=== PATIENT | female | born 1960 | race Caucasian/White ===

== ENCOUNTER → 2017-04-30 | Outpatient (CLI) | payer MEDICAID ==
--- NOTE | 2017-05-01 09:11 | USB ---
Reason for exam: clinical finding. History: Patient is postmenopausal, has history of breast cancer at age 47, and has history of endometrial cancer at age 26. Family history of breast cancer in paternal grandmother at age 80 and breast cancer in paternal aunt. Malignant US RT VAD breast biopsy of the right breast, June 14, 2013. Benign US LT VAD breast biopsy of the left breast, June 14, 2013. Left Breast Aspiration of the left breast, June 14, 2013. Saline implant in the left breast, 2012. Breast lift of the left breast, 2012. Chemotherapy, 2012. Radiation therapy, 2012. Cancelled Left US Needle Biopsy of the left breast, June 26, 2011. Mastectomy of the right breast, October 09, 2010. Malignant US right guided VAD of the right breast, August 23, 2010. Malignant US right guided VAD of the right breast, August 23, 2010. Malignant US right guided VAD of the right breast, August 23, 2010. Benign right US cyst aspiration of the right breast, March 05, 2010. Malignant US right guided mammotome of the right breast, December 18, 2007. Excisional biopsy of the right breast. Indicated problem(s): pain in both breasts. Physical Findings: Nurse Summary: saline implant left breast with prominent nodularity lower quadrant, right mastectomy, no palpable abnormality noted, prominent axillary nodes in the right breast (nurse ts). US Breast BILAT Right breast ultrasound includes all four quadrants, the retroareolar region and axilla. Finding demonstrates a 1.3 x 0.9 x 0.7cm node appearing inferior at the axilla. Left breast ultrasound includes all four quadrants, the retroareolar region and axilla. Finding demonstrates a 0.5 x 0.4 x 0.4cm oval, hypoechoic lesion at 2 o'clock, stable. These results were verbally communicated with the patient and result sheet given to the patient on 04/30/17. ASSESSMENT: Probably benign, BI-RAD 3 RECOMMENDATION: Ultrasound of both breasts in 6 months. Manage patient on a clinical basis.
== END | disposition home or self-care (01) ==
LOC: RADUSWWP 13:47
PROVIDERS: ATTEND Internal Medicine Hematology & Oncology
DX: N63 Unspecified lump in breast (principal); N64.4 Mastodynia; Z85.3 Personal history of malignant neoplasm of breast

== ENCOUNTER → 2017-04-30 | Outpatient (CLI) | payer MEDICAID ==
[2017-04-30 11:22] LABS: Basophils # (A) 0.1 k/uL (0-0.2); Basophils % (A) 1 %; CH 32.1; CHCM 33.8; Eosinophils # (A) 0.2 k/uL (0-0.7); Eosinophils % (A) 2 %; HCT 39.4 % (34.0-46.0); HDW 2.33; HGB 13.4 gm/dL (11.4-16.0); Luc # (Auto) 0.17; Luc % (Auto) 2; Lymphocytes # (A) 1.7 k/uL (1.0-4.8); Lymphocytes % (A) 20 %; MCH 32.4 pg (25.0-35.0); MCHC 33.9 g/dL (31.0-37.0); MCV 95.6 fL (80.0-100.0); Mean Platelet Volume 6.5; Monocytes # (A) 0.4 k/uL (0-1.0); Monocytes % (A) 5 %; Neutrophils # (A) 6.1 k/uL (1.3-7.7); Neutrophils % (A) 70 %; RBC 4.13 m/uL (3.80-5.40); RDW 13.4 % (11.5-15.5); WBC 8.6 k/uL (3.8-10.6); WBC (Perox) 8.98
[2017-04-30 12:32] LABS: ALT 36 U/L (9-52); AST 27 U/L (14-36); Alkaline Phosphatase 78 U/L (38-126); Anion Gap 10 mmol/L; Blood Urea Nitrogen 15 mg/dL (7-17); Calcium 9.9 mg/dL (8.4-10.2); Carbon Dioxide 29 mmol/L (22-30); Chloride 103 mmol/L (98-107); Glucose 112 mg/dL (74-99); Non-African American GFR(MDRD) >60 (>60 ml/min/1.73 sqM); Potassium 4.3 mmol/L (3.5-5.1); Sodium 142 mmol/L (137-145); Total Bilirubin 1.3 mg/dL (0.2-1.3); Total Protein 7.1 g/dL (6.3-8.2)
[2017-04-30 13:20] LABS: Vitamin B12 584 pg/mL (239-931)
== END | disposition home or self-care (01) ==
LOC: LABWHC1 10:36
PROVIDERS: ATTEND Internal Medicine Hematology & Oncology
DX: C50.919 Malignant neoplasm of unspecified site of unspecified female breast (principal); G47.00 Insomnia, unspecified
CPT/HCPCS: 36415; 80053; 82306; 82607; 85025

== ENCOUNTER → 2017-06-05 | Outpatient (CLI) | payer MEDICAID ==
--- NOTE | 2017-06-05 11:10 | CT ---
EXAMINATION TYPE: CT soft tissue neck w con DATE OF EXAM: 06/05/2017 COMPARISON: 11/10/2014 and 11/05/2014 HISTORY: 56-year-old female history of Breast Cancer. Observation for metastatic disease. TECHNIQUE: Contiguous axial scanning of the chest neck performed with IV Contrast, patient injected w ith 100 ml mL of Omnipaque 300. Coronal/sagittal reconstructions performed. CT DLP: 497 mGycm Automated exposure control for dose reduction was used. FINDINGS: Moderate mucosal thickening along the floors of the maxillary sinuses and throughout the ethmoid air cells. Rightward nasal septal deviation. Mastoid air cells appear clear. The nasopharynx is clear. There is enlargement of the tubal and palatine tonsils along the tonsillar pillars as well as the juan carlos gual tonsils narrowing the oropharyngeal airway to approximately 13 x 4 mm. Similar finding was prese nt on the prior exam. The epiglottis and prevertebral soft tissues appear satisfactory. The glottic and subglottic structures as well as the tracheal column are clear. The thyroid gland shows a stable tiny 4 mm linear nodule in the right lobe of the thyroid gland. The submandibular glands are mildly atrophic. Parotid glands are satisfactory. Some upper cervical lymph nodes are prominent measuring up to 1 cm short axis, sagittal image 58 but this seems to be similar to the 2014 exam. Multilevel degenerative changes within the cervical spine with grade 1 anterolisthesis at C4-C5. IMPRESSION: 1. TUBAL, PALATINE, AND LINGUAL TONSILLAR HYPERTROPHY SEEN ON 11/10/2014. THERE IS CONTINUED SECON DIMAS NARROWING OF THE OROPHARYNGEAL AIRWAY THOUGH NOT PRONOUNCED ON 11/10/2014. 2. PROMINENT BUT NOT ENLARGED UPPER CERVICAL LYMPH NODES MEASURE UP TO 1 CM, STABLE FROM 2014. 3. MODERATE CHRONIC MAXILLARY AND ETHMOID SINUS DISEASE.
--- NOTE | 2017-06-05 11:31 | CT ---
EXAMINATION TYPE: CT ChestAbdPelvis w con DATE OF EXAM: 06/05/2017 COMPARISON: 06/17/2013 and 11/05/2014 HISTORY: 56 year-old female history of breast cancer. Observation for metastases. TECHNIQUE: Contiguous axial scanning of the chest, abdomen, and pelvis performed with IV Contrast, pa tient injected with 100 ml mL of Omnipaque 300. Delayed images through the kidneys were obtained. Cor onal/sagittal reconstructions performed. CT DLP: 1927 mGycm Automated exposure control for dose reduction was used. FINDINGS: CHEST: The heart is upper limits of normal in size without pericardial effusion. Aorta is normal caliber with conventional arch vessel branching anatomy. Post surgical changes of right-sided mastectomy and axillary node dissection. A left breast prosthesi s is present. No thoracic lymphadenopathy. Subpleural reticulations are present along the anterior right lung underlying the patient's mastectom y suggesting posttherapy changes. Dependent atelectasis in the lungs. Motion artifact limiting assess ment for small pulmonary nodules. No definite suspicious pulmonary nodules allowing for this limitati on. No consolidation or pleural effusion. ABDOMEN: Stable subcentimeter hypodensity anterior mid liver to small for accurate CT characterization, likely cyst. No biliary ductal dilatation. Portal venous system is patent Gallbladder, adrenal glands, kidneys, spleen, and pancreas show no gross abnormal. Tiny fatty umbilical hernia. Some scattered prominent but nonenlarged lymph nodes are present in the abdomen such as measuring 5 m m in the aortocaval region. No dilated small bowel, free fluid, or free air. Normal appendix. Oral contrast has progressed to the distal transverse colon. There is moderate stool with mild sigmoid diverticulosis but no pericolonic inflammatory change. Pelvis: Bladder is urine distended. Uterus surgically absent. Similar asymmetric thickening along the right v aginal cuff with associated phleboliths. Neither ovary is clearly visualized. No abnormal fluid colle ction in the pelvis or pelvic lymphadenopathy seen. Bones: Osteitis pubis and mild degenerative changes at the hips. Additional degenerative changes lower lumba r spine. No osseous destructive process. IMPRESSION: 1. STATUS POST RIGHT MASTECTOMY AND AXILLARY NODE DISSECTION WITH POST TREATMENT CHANGE IN THE UNDERL AMANDA ANTERIOR LUNG. 2. LEFT BREAST PROSTHESIS. 3. NO SPECIFIC FINDINGS TO SUGGEST METASTATIC DISEASE WITHIN THE CHEST, ABDOMEN, OR PELVIS. 4. TINY FATTY UMBILICAL HERNIA AND A FEW SIGMOID DIVERTICULA.
--- NOTE | 2017-06-05 14:53 | NM ---
EXAMINATION TYPE: NM bone scan whole body DATE OF EXAM: 06/05/2017 COMPARISON: 06/17/2013 HISTORY: Pain Delayed whole-body scanning was performed following the injection of 27.0 mCi Tc 99m MDP. Images acq uired 5.25 hours post injection. FINDINGS: Abnormal uptake involving the shoulders, knees and right first MTP likely degenerative. Findings are suggestive of post arthritic changes. Abnormal uptake involving the cervical spine and lower lumbar spine appears fairly stable and most ty pical degenerative disc disease. IMPRESSION: Abnormal uptake appears stable likely post degenerative and post arthritic as discussed above with no diagnostic evidence of metastases.
== END | disposition home or self-care (01) ==
LOC: RADCTMAIN 08:06
PROVIDERS: ATTEND Internal Medicine Hematology & Oncology
DX: C50.919 Malignant neoplasm of unspecified site of unspecified female breast (principal); J39.2 Other diseases of pharynx; J35.1 Hypertrophy of tonsils; K42.9 Umbilical hernia without obstruction or gangrene; K57.30 Diverticulosis of large intestine without perforation or abscess without bleeding; Z90.11 Acquired absence of right breast and nipple
CPT/HCPCS: 70491; 71260; 74177; 78306; A9503; Q9967

== ENCOUNTER → 2018-03-19 | Outpatient (CLI) | payer MEDICAID ==
[2018-03-19 08:22] LABS: Basophils # (A) 0.1 k/uL (0-0.2); Basophils % (A) 1 %; Eosinophils # (A) 0.3 k/uL (0-0.7); Eosinophils % (A) 4 %; HCT 42.3 % (34.0-46.0); HGB 13.9 gm/dL (11.4-16.0); Lymphocytes # (A) 1.5 k/uL (1.0-4.8); Lymphocytes % (A) 17 %; MCH 31.4 pg (25.0-35.0); MCHC 32.9 g/dL (31.0-37.0); MCV 95.6 fL (80.0-100.0); Mean Platelet Volume 6.5; Monocytes # (A) 0.6 k/uL (0-1.0); Monocytes % (A) 6 %; Neutrophils # (A) 6.6 k/uL (1.3-7.7); Neutrophils % (A) 71 %; Platelet Count 329 k/uL (150-450); RBC 4.42 m/uL (3.80-5.40); RDW 14.2 % (11.5-15.5); WBC 9.3 k/uL (3.8-10.6)
[2018-03-19 08:48] LABS: ALT 27 U/L (9-52); AST 23 U/L (14-36); Albumin 4.3 g/dL (3.5-5.0); Alkaline Phosphatase 73 U/L (38-126); Anion Gap 11 mmol/L; Blood Urea Nitrogen 17 mg/dL (7-17); Calcium 9.2 mg/dL (8.4-10.2); Carbon Dioxide 30 mmol/L (22-30); Chloride 100 mmol/L (98-107); Glucose 89 mg/dL (74-99); Potassium 4.4 mmol/L (3.5-5.1); Sodium 141 mmol/L (137-145); Total Bilirubin 0.7 mg/dL (0.2-1.3); Total Protein 7.1 g/dL (6.3-8.2)
== END ==
LOC: LABWHC1 07:53
PROVIDERS: ATTEND Internal Medicine Infectious Disease
DX: L30.9 Dermatitis, unspecified (principal); R53.83 Other fatigue
CPT/HCPCS: 36415; 80053; 84443; 85025

== ENCOUNTER → 2018-05-15 | Outpatient (CLI) | payer MEDICAID ==
--- NOTE | 2018-05-18 07:29 | USB ---
Reason for exam: clinical finding. History: Patient is postmenopausal, has history of breast cancer at age 47, and has history of endometrial cancer at age 26. Family history of breast cancer in paternal grandmother at age 80 and breast cancer in paternal aunt. Malignant US RT VAD breast biopsy of the right breast, June 14, 2013. Benign US LT VAD breast biopsy of the left breast, June 14, 2013. Left Breast Aspiration of the left breast, June 14, 2013. Saline implant in the left breast, 2012. Breast lift of the left breast, 2012. Chemotherapy, 2012. Radiation therapy, 2012. Cancelled Left US Needle Biopsy of the left breast, June 26, 2011. Mastectomy of the right breast, October 09, 2010. Malignant US right guided VAD of the right breast, August 23, 2010. Malignant US right guided VAD of the right breast, August 23, 2010. Malignant US right guided VAD of the right breast, August 23, 2010. Benign right US cyst aspiration of the right breast, March 05, 2010. Malignant US right guided mammotome of the right breast, December 18, 2007. Excisional biopsy of the right breast. Physical Findings: Nurse did not find any significant physical abnormalities on exam. US Breast BILAT Left complete breast ultrasound includes all four quadrants, the retroareolar region and axilla. Finding demonstrates a 0.4 x 0.3 x 0.3cm oval, hypoechoic lesion at 2 o'clock, probable benign, short term follow up recommended and a 0.3 x 0.4 x 0.3cm oval, mixed lesion at 6 o'clock, stable from priors, follow up in 6 months recommended. Right complete breast ultrasound includes all four quadrants, the retroareolar region and axilla. Finding demonstrates no soft tissue abnormality, BB macdonald a rib. These results were verbally communicated with the patient and result sheet given to the patient on 05/15/18. ASSESSMENT: Probably benign, BI-RAD 3 RECOMMENDATION: Ultrasound of the left breast in 6 months.
== END | disposition home or self-care (01) ==
LOC: RADUSWWP 14:02
PROVIDERS: ATTEND Internal Medicine Hematology & Oncology
DX: R92.8 Other abnormal and inconclusive findings on diagnostic imaging of breast (principal); Z85.3 Personal history of malignant neoplasm of breast

== ENCOUNTER → 2018-11-12 | Outpatient (CLI) | payer MEDICAID ==
--- NOTE | 2018-11-12 13:43 | USB ---
Reason for exam: follow-up at short interval from prior study. History: Patient is postmenopausal, has history of breast cancer at age 47, and has history of endometrial cancer at age 26. Family history of breast cancer in paternal grandmother at age 80 and breast cancer in paternal aunt. Malignant US RT VAD breast biopsy of the right breast, June 14, 2013. Benign US LT VAD breast biopsy of the left breast, June 14, 2013. Left Breast Aspiration of the left breast, June 14, 2013. Saline implant in the left breast, 2012. Breast lift of the left breast, 2012. Chemotherapy, 2012. Radiation therapy, 2012. Cancelled Left US Needle Biopsy of the left breast, June 26, 2011. Mastectomy of the right breast, October 09, 2010. Malignant US right guided VAD of the right breast, August 23, 2010. Malignant US right guided VAD of the right breast, August 23, 2010. Malignant US right guided VAD of the right breast, August 23, 2010. Benign right US cyst aspiration of the right breast, March 05, 2010. Malignant US right guided mammotome of the right breast, December 18, 2007. Excisional biopsy of the right breast. Physical Findings: Nurse Summary: right breast mastectomy, left breast saline implant, all soft, movable with prominent nodularity at nipple (nurse ts). US Breast LT Left complete breast ultrasound includes all four quadrants, the retroareolar region and axilla. Finding demonstrates a 0.3 x 0.3 x 0.3cm lesion at 6 o'clock. These results were verbally communicated with the patient and result sheet given to the patient on 11/12/18. ASSESSMENT: Probably benign, BI-RAD 3 RECOMMENDATION: Ultrasound of the left breast in 6 months.
== END | disposition home or self-care (01) ==
LOC: RADUSWWP 09:18
PROVIDERS: ATTEND Internal Medicine Hematology & Oncology
DX: R92.8 Other abnormal and inconclusive findings on diagnostic imaging of breast (principal); E78.2 Mixed hyperlipidemia; Z85.3 Personal history of malignant neoplasm of breast

== ENCOUNTER → 2018-11-19 | Outpatient (CLI) | payer MEDICAID ==
[2018-11-19 09:49] LABS: Basophils # (A) 0.1 k/uL (0-0.2); Basophils % (A) 1 %; Eosinophils # (A) 0.4 k/uL (0-0.7); Eosinophils % (A) 5 %; HCT 38.7 % (34.0-46.0); HGB 12.5 gm/dL (11.4-16.0); Lymphocytes # (A) 1.7 k/uL (1.0-4.8); Lymphocytes % (A) 24 %; MCH 31.8 pg (25.0-35.0); MCHC 32.2 g/dL (31.0-37.0); MCV 98.7 fL (80.0-100.0); Mean Platelet Volume 6.8; Monocytes # (A) 0.4 k/uL (0-1.0); Monocytes % (A) 6 %; Neutrophils # (A) 4.5 k/uL (1.3-7.7); Neutrophils % (A) 63 %; Platelet Count 277 k/uL (150-450); RBC 3.92 m/uL (3.80-5.40); RDW 13.8 % (11.5-15.5); WBC 7.2 k/uL (3.8-10.6)
[2018-11-19 15:53] LABS: Albumin 4.2 g/dL (3.80-4.90); Albumin/Globulin Ratio 2.1 (1.20-2.10); Anion Gap 6.8 mmol/L (4.00-12.00); Calcium 9.2 mg/dL (8.7-10.3); Carbon Dioxide 28.2 mmol/L (21.6-31.8); LDL Cholesterol,Calculated 95.6 mg/dL (0.0-131.0); Potassium 4.7 mmol/L (3.5-5.5); Total Bilirubin 0.8 mg/dL (0.2-1.2); Total Protein 6.2 g/dL (6.2-8.2); VLDL Calculation 19.4 mg/dL (5.00-40.00)
[2018-11-19 16:01] LABS: T4, Free (Free Thyroxine) 1.3 ng/dL (0.80-1.80)
== END | disposition home or self-care (01) ==
LOC: LABWHC1 08:49
PROVIDERS: ATTEND Internal Medicine Hematology & Oncology
DX: C50.919 Malignant neoplasm of unspecified site of unspecified female breast (principal); G47.00 Insomnia, unspecified; E78.2 Mixed hyperlipidemia; Z71.3 Dietary counseling and surveillance
CPT/HCPCS: 36415; 80053; 80061; 82652; 84439; 84443; 84481; 85025

== ENCOUNTER → 2019-05-12 | Outpatient (CLI) | payer MEDICAID ==
--- NOTE | 2019-05-13 07:34 | USB ---
Reason for exam: clinical finding. History: Patient is postmenopausal, has history of breast cancer at age 47, and has history of endometrial cancer at age 26. Family history of breast cancer in paternal grandmother at age 80 and breast cancer in paternal aunt. Malignant US RT VAD breast biopsy of the right breast, June 14, 2013. Benign US LT VAD breast biopsy of the left breast, June 14, 2013. Left Breast Aspiration of the left breast, June 14, 2013. Saline implant in the left breast, 2012. Breast lift of the left breast, 2012. Chemotherapy, 2012. Radiation therapy, 2012. Cancelled Left US Needle Biopsy of the left breast, June 26, 2011. Mastectomy of the right breast, October 09, 2010. Malignant US right guided VAD of the right breast, August 23, 2010. Malignant US right guided VAD of the right breast, August 23, 2010. Malignant US right guided VAD of the right breast, August 23, 2010. Benign right US cyst aspiration of the right breast, March 05, 2010. Malignant US right guided mammotome of the right breast, December 18, 2007. Excisional biopsy of the right breast. Indicated problem(s): palpable abnormality in the left breast. Physical Findings: Nurse Summary: 1.5cm axilla palpable (nurse dw). US Breast BILAT Right complete breast ultrasound includes all four quadrants, the retroareolar region and axilla. Finding demonstrates no cystic or solid lesion seen. Left complete breast ultrasound includes all four quadrants, the retroareolar region and axilla. Finding demonstrates a 0.4 x 0.5 x 0.4cm oval, irregular, mixed, hypoechoic lesion at 6 o'clock, a 0.3 x 0.4 x 0.2cm oval, cystic lesion at 7 o'clock, a 1.1 x 0.9 x 0.6cm oval, lymph node at the axilla and a 1.5 x 0.7 x 0.5cm oval, solid lesion at the superior axilla BB. These results were verbally communicated with the patient and result sheet given to the patient on 05/12/19. ASSESSMENT: Suspicious, BI-RAD 4 RECOMMENDATION: Ultrasound core biopsy of the left breast. (2 sites, 6 o'clock and axilla) Called with mammographic findings and has scheduled an appointment for the patient for 05/21/[address] Cho. Biopsy scheduled for 05/31/19 at 2:00. PRELIMINARY REPORT CALLED AND FAXED TO DR. CHO ON 05/13/19.
== END | disposition home or self-care (01) ==
LOC: RADUSWWP 07:33
PROVIDERS: ATTEND Internal Medicine Hematology & Oncology
DX: R92.8 Other abnormal and inconclusive findings on diagnostic imaging of breast (principal); Z85.3 Personal history of malignant neoplasm of breast

== ENCOUNTER → 2019-05-20 | Outpatient (CLI) | payer MEDICAID ==
[2019-05-20 09:20] LABS: Basophils # (A) 0.1 k/uL (0-0.2); Basophils % (A) 1 %; Eosinophils # (A) 0.4 k/uL (0-0.7); Eosinophils % (A) 5 %; HCT 39.8 % (34.0-46.0); HGB 12.6 gm/dL (11.4-16.0); Lymphocytes % (A) 25 %; MCH 30.9 pg (25.0-35.0); MCHC 31.6 g/dL (31.0-37.0); MCV 97.8 fL (80.0-100.0); Mean Platelet Volume 6.7; Monocytes # (A) 0.5 k/uL (0-1.0); Monocytes % (A) 6 %; Neutrophils # (A) 4.8 k/uL (1.3-7.7); Neutrophils % (A) 61 %; Platelet Count 266 k/uL (150-450); RBC 4.07 m/uL (3.80-5.40); RDW 13.9 % (11.5-15.5); WBC 7.9 k/uL (3.8-10.6)
[2019-05-20 16:38] LABS: African American GFR (CKD) 110.7 (60.0-200.0); Albumin 4.3 g/dL (3.80-4.90); Albumin/Globulin Ratio 2.39 (1.60-3.17); Anion Gap 9.5 mmol/L (4.00-12.00); BUN/Creat Ratio 14.29 Ratio (12.00-20.00); Calcium 9.7 mg/dL (8.7-10.3); Carbon Dioxide 29.5 mmol/L (21.6-31.8); Globulin 1.8 g/dL (1.6-3.3); Potassium 4.1 mmol/L (3.5-5.5); Total Bilirubin 0.9 mg/dL (0.2-1.2); Total Protein 6.1 g/dL (6.2-8.2)
[2019-05-20 16:44] LABS: T4, Free (Free Thyroxine) 1.1 ng/dL (0.80-1.80)
== END | disposition home or self-care (01) ==
LOC: LABWHC1 08:32
PROVIDERS: ATTEND Internal Medicine Hematology & Oncology
DX: C50.919 Malignant neoplasm of unspecified site of unspecified female breast (principal); G47.00 Insomnia, unspecified; E78.2 Mixed hyperlipidemia; E07.9 Disorder of thyroid, unspecified; Z71.3 Dietary counseling and surveillance
CPT/HCPCS: 36415; 80053; 80061; 84439; 84443; 84481; 85025

== ENCOUNTER → 2019-05-31 | Day surgery (SDC) | payer MEDICAID ==
[2019-05-31 13:44] VITALS: BP 133/83; PULSE 83; RESP 16; TEMP 97.8; BMI 30.5
--- NOTE | 2019-06-01 00:19 | USB ---
EXAMINATION TYPE: US discontinued breast bx LT DATE OF EXAM: 05/31/2019 COMPARISON: 05/12/2019, 11/12/2018, 05/15/2018, 11/06/2017, and 10/31/2015 HISTORY: 58-year-old female referred for ultrasound-guided left breast biopsy. TECHNIQUE: Initial left breast ultrasound to identify the target lesions. FINDINGS: The 6:00 round 4 mm, circumscribed lesion is identified. When compared to multiple prior exams dating back to 10/31/2015 where this target lesion likely was present. The area is unchanged from 11/06/2017 . The next lesion was the palpable, superficial lesion in the axillary tail region partially involving the skin surface currently measuring 8 x 3 mm (versus 1.5 x 0.5 cm, on 05/12/2019). The patient report s that this lesion changes size and often expresses internal contents when pressed. This may further evaluated with a dermatology referral. The 2 axillary lymph nodes are also reviewed on the patient's 05/12/2019 exam. They are not enlarged. Fatty hilum is maintained. No abnormal cortical thickening. Six-month follow-up ultrasound can be performed. Findings and impression and the decision to defer biopsy is discussed with the patient in detail. IMPRESSION: BI-RADS 3-probably benign RECOMMENDATION: 1. Six-month follow-up left breast ultrasound. 2. Patient should continue monthly self breast exam. 3. Dermatology referral for the palpable axillary tail lesion.
== END | disposition home or self-care (01) ==
LOC: RADUSWWP 13:10
PROVIDERS: ATTEND Internal Medicine Hematology & Oncology
DX: N63.32 Unspecified lump in axillary tail of the left breast (principal); Z53.8 Procedure and treatment not carried out for other reasons

== ENCOUNTER → 2019-09-14 | Outpatient (CLI) | payer MEDICAID ==
--- NOTE | 2019-09-14 12:09 | MR ---
EXAMINATION TYPE: MR knee LT wo con DATE OF EXAM: 09/14/2019 COMPARISON: Outside left knee radiographs dated 08/30/2019 HISTORY: Lt knee pain x 1 month TECHNIQUE: Multiplanar, multisequence imaging of the left knee is performed without IV contrast. FINDINGS: MEDIAL MENISCUS: There is a contusion and oblique tear of the posterior horn of the medial meniscus. This extends towards the meniscal root although the meniscal root appears intact. There is an associa tyrell 2.6 mm parameniscal cyst. LATERAL MENISCUS: Anterior and posterior horns are intact without tear. CRUCIATE LIGAMENTS: The anterior and posterior cruciate ligaments are intact however there is some in creased signal in the anterior cruciate ligament relating of low-grade sprain. COLLATERAL LIGAMENTS: The medial collateral ligament and lateral collateral ligament complex are inta ct. There is high signal superficial and deep to the medial collateral ligament indicative of sprain and bursitis. EXTENSOR MECHANISM: Visualized quadriceps and patellar tendons are intact. EFFUSION: Very small uncomplicated suprapatellar joint effusion. POPLITEAL CYST: No popliteal/hernandes cyst. TRICOMPARTMENT SPACES: There are small tricompartmental osteophytes. CARTILAGE: There is very mild thinning of the lateral compartment cartilage and medial weightbearing surface partial-thickness chondral defect measuring 1.2 cm. Chondral heterogeneity of the medial comp artment is seen without full-thickness or partial-thickness defect. Patellofemoral compartment cartil age is maintained. BONE MARROW SIGNAL: There is a small focus of bone marrow edema of the medial tibial plateau measurin g approximately 9 x 9 mm deep to the meniscal tear. OTHER: Nonspecific subcutaneous edema is seen in the peripatellar and infrapatellar subcutaneous tis sues. IMPRESSION: 1. Oblique tear and contusion of the posterior horn of the medial meniscus with underlying bone marro w edema of the tibial plateau deep to the meniscal tear. There is also an associated 2.6 mm paramenis cyndy cyst. 2. Low-grade ACL and MCL sprains. Small amount of fluid over the MCL also suggests a component of MCL bursitis. 3. Mild tricompartmental arthrosis and bicompartmental chondrosis.
== END | disposition home or self-care (01) ==
LOC: RADMRIMAIN 10:36
PROVIDERS: ATTEND Orthopaedic Surgery
DX: M17.12 Unilateral primary osteoarthritis, left knee (principal); S83.242A Other tear of medial meniscus, current injury, left knee, initial encounter; S80.02XA Contusion of left knee, initial encounter; S83.512A Sprain of anterior cruciate ligament of left knee, initial encounter; S83.412A Sprain of medial collateral ligament of left knee, initial encounter

== ENCOUNTER → 2020-01-13 | Outpatient (CLI) | payer MEDICAID ==
--- NOTE | 2020-01-13 13:34 | USB ---
Reason for exam: follow-up at short interval from prior study. History: Patient is postmenopausal, has history of breast cancer at age 47, and has history of endometrial cancer at age 26. Family history of breast cancer in paternal grandmother at age 80 and breast cancer in paternal aunt. US discontinued breast bx LT of the left breast, May 31, 2019. Malignant US RT VAD breast biopsy of the right breast, June 14, 2013. Benign US LT VAD breast biopsy of the left breast, June 14, 2013. Left Breast Aspiration of the left breast, June 14, 2013. Saline implant in the left breast, 2012. Breast lift of the left breast, 2012. Chemotherapy, 2012. Radiation therapy, 2012. Cancelled Left US Needle Biopsy of the left breast, June 26, 2011. Mastectomy of the right breast, October 09, 2010. Malignant US right guided VAD of the right breast, August 23, 2010. Malignant US right guided VAD of the right breast, August 23, 2010. Malignant US right guided VAD of the right breast, August 23, 2010. Benign right US cyst aspiration of the right breast, March 05, 2010. Malignant US right guided mammotome of the right breast, December 18, 2007. Excisional biopsy of the right breast. Physical Findings: Nurse Summary: right upper inner quadrant 1cm area of swelling/pain 3-4 months, left at 9 o'clock pain with palpation (nurse jj). US Breast BILAT Technologist: Kelle Red Left complete breast ultrasound includes all four quadrants, the retroareolar region and axilla. Finding demonstrates a 0.3 x 0.3 x 0.3cm circular, lesion too small to characterize at 1 o'clock, possibly cystic, 6 month follow up recommended, a 0.3 x 0.3 x 0.3cm hypoechoic lesion at 6 o'clock, 5 x 4 x 4mm previously, stable back to 11/06/17, a 1.4 x 0.7 x 0.4cm oval lesion at the axilla versus 1.5 x 0.7 x 0.5cm before, partially involves the skin and a 0.4 x 0.7 x 0.3cm oval lesion at 7 o'clock versus 4 x 3 x 2mm, appears like an elongated cyst, 6 month follow up recommended. Right complete breast ultrasound includes all four quadrants, the retroareolar region and axilla. Finding demonstrates no cystic or solid lesion seen. Right breast palpable at 1 o'clock shows a prominent rib. These results were verbally communicated with the patient and result sheet given to the patient on 01/13/20. ASSESSMENT: Probably benign, BI-RAD 3 RECOMMENDATION: Ultrasound of the left breast in 6 months. Manage on a clinical basis with regard to lesion in the axilla, consider dermatology consult for excisional if symptomatic.
== END | disposition home or self-care (01) ==
LOC: RADUSWWP 10:13
PROVIDERS: ATTEND Internal Medicine Hematology & Oncology
DX: Z08 Encounter for follow-up examination after completed treatment for malignant neoplasm (principal); Z85.3 Personal history of malignant neoplasm of breast

== ENCOUNTER 2020-01-24 14:31 | Observation (INO) | payer MEDICAID ==
[2020-01-24] MEDS ORDERED: KETOROLAC 30 MG/ML 1 ML VIAL IVP STA (15:06)
[2020-01-24] MEDS ORDERED: PANTOPRAZOLE 40 MG/10 ML VIAL IVP STA (15:06)
[2020-01-24] MEDS ORDERED: SODIUM CHLORIDE 0.9% 500 ML 500 ML IV STA (15:06)
--- NOTE | 2020-01-24 15:19 | ED ---
General Adult HPI - General Chief complaint: Abdominal Pain Stated complaint: chest/upper abd tightness Time Seen by Provider: 01/24/20 14:48 Source: patient Mode of arrival: ambulatory Limitations: no limitations - History of Present Illness Initial comments: Patient is a 59-year-old female, with past medical history of breast cancer, presenting to emergency Department with complaints of left sided chest pain has been intermittent for the past 3-4 weeks. Patient describes the pain as cramping sensation underneath the left side of her breast. She denies any shortness of breath, recent fevers. She denies any recent travel. She denies any radiation of the pain. She denies any abdominal discomfort. She denies any abdominal surgeries. There has been no nausea, vomiting. She states she has been belching a lot more frequently as well as having heartburn. She did try Tums today for her symptoms without relief. She states her symptoms were intermittent when it first started a few weeks ago but the last few days it has been constant. Patient denies any history of heart disease. She has not had a recent stress test. She does not take any medications. She has no other complaints at this time. Her vital signs are stable upon arrival. - Related Data Home Medications Medication Instructions Recorded Confirmed Multivitamins, Thera [Multivitamin] 1 tab PO AC-LUNCH 11/15/14 01/24/20 Ascorbic Acid [Vitamin C] 500 mg PO AC-BRKFST 01/24/20 01/24/20 Biotin 5 mg PO AC-LUNCH 01/24/20 01/24/20 Collagen Powder 2 scoop PO AC-BRKFST 01/24/20 01/24/20 Cyanocobalamin [Vitamin B-12 1,000 mcg SQ Q7D 01/24/20 01/24/20 Injection] Krill Oil(Unknown Dose) 1 cap PO AC-LUNCH 01/24/20 01/24/20 Viviscal 1 tab PO AC-LUNCH 01/24/20 01/24/20 Zinc 50 mg PO AC-BRKFST 01/24/20 01/24/20 Allergies Allergy/AdvReac Type Severity Reaction Status Date / Time latex Allergy Unknown Rash/Hives Verified 01/24/20 14:37 Penicillins Allergy Unknown Rash/Hives Verified 01/24/20 14:37 Sulfa (Sulfonamide Allergy Unknown Rash/Hives Verified 01/24/20 14:37 Antibiotics) codeine Allergy Rash/Hives Verified 01/24/20 14:37 narcotics Allergy Unknown Rash/Hives Uncoded 01/24/20 14:37 Review of Systems ROS Statement: Those systems with pertinent positive or pertinent negative responses have been documented in the HPI. ROS Other: All systems not noted in ROS Statement are negative. Past Medical History Past Medical History: Cancer Additional Past Medical History / Comment(s): Breast cancer Right 2007, 2011 and 2014 HX OF Right BREAST CANCER WITH SURG, CHEMO AND RADIATION THERAPY- 2014, HX OF CANCEROUS TUMOR CHEST WALL- 2012. INTERNAL DERANGMENT RIGHT KNEE. History of Any Multi-Drug Resistant Organisms: None Reported Past Surgical History: Breast Surgery, Hysterectomy Additional Past Surgical History / Comment(s): RIGHT BREAST LUMPECTOMY, RIGHT M ASTECTOMY, RT BREAST RECONSTRUCTION. Left breast lift and saline implant. Ovaries removed. Past Anesthesia/Blood Transfusion Reactions: Previous Problems w/ Anesthesia Additional Past Anesthesia/Blood Transfusion Reaction / Comment(s): STATES BREAKS OUT IN RASH FROM NARCOTICS Past Psychological History: No Psychological Hx Reported Smoking Status: Current every day smoker Past Alcohol Use History: Daily Past Drug Use History: None Reported - Past Family History Mother Family Medical History: Cancer Additional Family Medical History / Comment(s): CERVICAL CANCER General Exam - General Exam Comments Initial Comments: GENERAL: Well-appearing, well-nourished and in no acute distress. HEAD: Atraumatic, normocephalic. EYES: Pupils equal round and reactive to light, extraocular movements intact, sclera anicteric, conjunctiva are normal. ENT: TMs normal, nares patent, oropharynx clear without exudates. Moist mucous membranes. NECK: Normal range of motion, supple without lymphadenopathy or JVD. LUNGS: Breath sounds clear to auscultation bilaterally and equal. No wheezes rales or rhonchi. HEART: Regular rate and rhythm without murmurs, rubs or gallops. No pain with palpation of the chest. History of right mastectomy. ABDOMEN: Soft, nontender, normoactive bowel sounds. No guarding, no rebound. No masses appreciated. : Deferred EXTREMITIES: Normal range of motion, no pitting or edema. No clubbing or cyanosis. NEUROLOGICAL: Normal speech, normal gait. PSYCH: Normal mood, normal affect. SKIN: Warm, Dry, normal turgor, no rashes or lesions noted. Limitations: no limitations Course Vital Signs 01/24/20 01/24/20 01/24/20 14:34 15:37 15:40 Temperature 97.9 F Pulse Rate 82 69 70 Respiratory 18 20 20 Rate Blood Pressure 127/85 120/72 120/72 O2 Sat by Pulse 100 98 98 Oximetry 01/24/20 01/24/20 15:50 17:08 Temperature Pulse Rate 66 67 Respiratory 20 16 Rate Blood Pressure 116/61 124/45 O2 Sat by Pulse 97 96 Oximetry EKG Findings - EKG Comments: EKG Findings:: Ventricular rate 67, DE interval 152, QTC 414. Normal sinus rhythm, no acute ST segment changes. Medical Decision Making - Medical Decision Making Patient is a 59-year-old female presenting with a left-sided chest discomfort has been intermittent for the past 3-4 weeks. The pain has been constant the last few days. She denies shortness of breath, fevers. Vital signs are stable. Exam is unremarkable. This is not reproducible. EKG has no acute findings. Patient's lab work shows no acute abnormalities. D-dimer was negative, troponin was normal. Patient was given fluids, Toradol, protonic. She states that this did not improve her symptoms. I discussed case with Dr. Schmidt. Patient will be admitted for cardiac rule out. Patient is agreeable with this plan of care. An aspirin was given to patient. Patient admitted under Dr. Ryan. - Lab Data Result diagrams: 01/24/20 15:21 01/24/20 15:21 Lab Results 01/24/20 01/24/20 01/24/20 Range/Units 15:21 15:21 15:21 WBC 6.8 (3.8-10.6) k/uL RBC 3.97 (3.80-5.40) m/uL Hgb 12.6 (11.4-16.0) gm/dL Hct 37.8 (34.0-46.0) % MCV 95.3 (80.0-100.0) fL MCH 31.6 (25.0-35.0) pg MCHC 33.2 (31.0-37.0) g/dL RDW 13.8 (11.5-15.5) % Plt Count 328 (150-450) k/uL Neutrophils % 51 % Lymphocytes % 37 % Monocytes % 6 % Eosinophils % 3 % Basophils % 1 % Neutrophils # 3.5 (1.3-7.7) k/uL Lymphocytes # 2.5 (1.0-4.8) k/uL Monocytes # 0.4 (0-1.0) k/uL Eosinophils # 0.2 (0-0.7) k/uL Basophils # 0.1 (0-0.2) k/uL PT 9.5 (9.0-12.0) sec INR 0.9 (<1.2) APTT 22.9 (22.0-30.0) sec D-Dimer 0.31 (<0.60) mg/L FEU Sodium 137 (137-145) mmol/L Potassium 4.0 (3.5-5.1) mmol/L Chloride 102 (98-107) mmol/L Carbon Dioxide 28 (22-30) mmol/L Anion Gap 7 mmol/L BUN 14 (7-17) mg/dL Creatinine 0.56 (0.52-1.04) mg/dL Est GFR (CKD-EPI)AfAm >90 (>60 ml/min/1.73 sqM) Est GFR (CKD-EPI)NonAf >90 (>60 ml/min/1.73 sqM) Glucose 158 H (74-99) mg/dL Calcium 9.5 (8.4-10.2) mg/dL Total Bilirubin 0.3 (0.2-1.3) mg/dL AST 31 (14-36) U/L ALT 23 (4-34) U/L Alkaline Phosphatase 53 (38-126) U/L Troponin I (0.000-0.034) ng/mL Total Protein 6.9 (6.3-8.2) g/dL Albumin 4.2 (3.5-5.0) g/dL Lipase 151 (23-300) U/L Urine Color Urine Appearance (Clear) Urine pH (5.0-8.0) Ur Specific [place] (1.001-1.035) Urine Protein (Negative) Urine Glucose (UA) (Negative) Urine Ketones (Negative) Urine Blood (Negative) Urine Nitrite (Negative) Urine Bilirubin (Negative) Urine Urobilinogen (<2.0) mg/dL Ur Leukocyte Esterase (Negative) 01/24/20 01/24/20 Range/Units 15:21 15:46 WBC (3.8-10.6) k/uL RBC (3.80-5.40) m/uL Hgb (11.4-16.0) gm/dL Hct (34.0-46.0) % MCV (80.0-100.0) fL MCH (25.0-35.0) pg MCHC (31.0-37.0) g/dL RDW (11.5-15.5) % Plt Count (150-450) k/uL Neutrophils % % Lymphocytes % % Monocytes % % Eosinophils % % Basophils % % Neutrophils # (1.3-7.7) k/uL Lymphocytes # (1.0-4.8) k/uL Monocytes # (0-1.0) k/uL Eosinophils # (0-0.7) k/uL Basophils # (0-0.2) k/uL PT (9.0-12.0) sec INR (<1.2) APTT (22.0-30.0) sec D-Dimer (<0.60) mg/L FEU Sodium (137-145) mmol/L Potassium (3.5-5.1) mmol/L Chloride (98-107) mmol/L Carbon Dioxide (22-30) mmol/L Anion Gap mmol/L BUN (7-17) mg/dL Creatinine (0.52-1.04) mg/dL Est GFR (CKD-EPI)AfAm (>60 ml/min/1.73 sqM) Est GFR (CKD-EPI)NonAf (>60 ml/min/1.73 sqM) Glucose (74-99) mg/dL Calcium (8.4-10.2) mg/dL Total Bilirubin (0.2-1.3) mg/dL AST (14-36) U/L ALT (4-34) U/L Alkaline Phosphatase (38-126) U/L Troponin I <0.012 (0.000-0.034) ng/mL Total Protein (6.3-8.2) g/dL Albumin (3.5-5.0) g/dL Lipase (23-300) U/L Urine Color Light Yellow Urine Appearance Clear (Clear) Urine pH 6.5 (5.0-8.0) Ur Specific [place] 1.003 (1.001-1.035) Urine Protein Negative (Negative) Urine Glucose (UA) Negative (Negative) Urine Ketones Negative (Negative) Urine Blood Negative (Negative) Urine Nitrite Negative (Negative) Urine Bilirubin Negative (Negative) Urine Urobilinogen <2.0 (<2.0) mg/dL Ur Leukocyte Esterase Negative (Negative) Disposition Clinical Impression: Chest pain Disposition: ADMITTED IP TO THIS HOSP Condition: Stable Is patient prescribed a controlled substance at d/c from ED?: No Decision Date: 01/24/20 Decision Time: 17:07
[2020-01-24 15:39] LABS: Basophils # (A) 0.1 k/uL (0-0.2); Basophils % (A) 1 %; Eosinophils # (A) 0.2 k/uL (0-0.7); Eosinophils % (A) 3 %; HCT 37.8 % (34.0-46.0); HGB 12.6 gm/dL (11.4-16.0); Lymphocytes # (A) 2.5 k/uL (1.0-4.8); Lymphocytes % (A) 37 %; MCH 31.6 pg (25.0-35.0); MCHC 33.2 g/dL (31.0-37.0); MCV 95.3 fL (80.0-100.0); Mean Platelet Volume 7.5; Monocytes # (A) 0.4 k/uL (0-1.0); Monocytes % (A) 6 %; Neutrophils # (A) 3.5 k/uL (1.3-7.7); Neutrophils % (A) 51 %; Platelet Count 328 k/uL (150-450); RBC 3.97 m/uL (3.80-5.40); RDW 13.8 % (11.5-15.5); WBC 6.8 k/uL (3.8-10.6)
[2020-01-24 15:47] LABS: ALT 23 U/L (4-34); AST 31 U/L (14-36); African American GFR (CKD) >90 (>60 ml/min/1.73 sqM); Albumin 4.2 g/dL (3.5-5.0); Alkaline Phosphatase 53 U/L (38-126); Anion Gap 7 mmol/L; Blood Urea Nitrogen 14 mg/dL (7-17); Calcium 9.5 mg/dL (8.4-10.2); Carbon Dioxide 28 mmol/L (22-30); Chloride 102 mmol/L (98-107); Glucose 158 mg/dL (74-99); Non-African American GFR(CKD) >90 (>60 ml/min/1.73 sqM); Sodium 137 mmol/L (137-145); Total Bilirubin 0.3 mg/dL (0.2-1.3); Total Protein 6.9 g/dL (6.3-8.2)
[2020-01-24 15:52] LABS: D-Dimer 0.31 mg/L FEU (<0.60); INR 0.9 (<1.2); Partial Thromboplastin Time 22.9 sec (22.0-30.0); Prothrombin Time 9.5 sec (9.0-12.0)
[2020-01-24 15:53] LABS: Appearance,Urine Clear (Clear); Bilirubin,Urine Negative (Negative); Blood,Urine Negative (Negative); Color,Urine Light Yellow; Glucose,Urine (UA) Negative (Negative); Ketones,Urine Negative (Negative); Leukocyte Esterase,Urine Negative (Negative); Nitrite,Urine Negative (Negative); PH, Urine 6.5 (5.0-8.0); Protein,Urine Negative (Negative); Specific Gravity,Urine 1.003 (1.001-1.035); Urobilinogen,Urine <2.0 mg/dL (<2.0)
--- NOTE | 2020-01-24 16:15 | XR ---
EXAMINATION TYPE: XR chest 2V DATE OF EXAM: 01/24/2020 COMPARISON: Prior CT June 05, 2017. Prior chest x-ray November 12, 2016 HISTORY: Chest pain. TECHNIQUE: Frontal and lateral views of the chest are obtained. FINDINGS: There is no focal air space opacity, pleural effusion, or pneumothorax seen. The cardiac silhouette size is upper limits of normal. The osseous structures are intact. Right breast shadow surgically absent with surgical clips right axilla redemonstrated. IMPRESSION: No acute cardiopulmonary process. No significant change from prior studies.
[2020-01-24] MEDS ORDERED: MAG HYDROX/AL HYDROX/SIMETH 30 ML, HYOSCYAMINE ELIXIR 10 ML, LIDOCAINE VISCOUS 2% 10 ML PO STA ×3 (16:43)
[2020-01-24] MEDS ORDERED: ASPIRIN 325 MG TAB PO STA (16:51)
[2020-01-24] MEDS ORDERED: NITROGLYCERIN SL TABS 0.4 MG TAB SUBLINGUAL PRN (17:04)
[2020-01-24] MEDS ORDERED: ACETAMINOPHEN TAB 325 MG TAB PO PRN (18:19)
[2020-01-24] MEDS ORDERED: HYDROcodone/APAP 5-325MG 1 EACH TAB PO PRN (18:19)
[2020-01-24] MEDS ORDERED: NALOXONE 0.4 MG/ML 1 ML VIAL IV PRN (18:19)
[2020-01-24] MEDS ORDERED: ALPRAZolam 0.5 MG TAB PO PRN (18:20)
--- NOTE | 2020-01-24 18:26 | P.HPIM ---
History of Present Illness H&P Date: 01/24/20 Chief Complaint: Chest tightness 59-year-old female with PMH of breast cancer post radiation, chemotherapy, lumpectomy and meniscectomy follows Dr. Christianson presents to the ED for left-sided chest pain. Patient reports the chest pain to be ongoing for for the past week but has progressively been getting worse over the last 2 days. Patient reports the pain to be left-sided and located under her left breast. Pain is pressure- like in sensation. Pain is 8 out of 10 in severity. There are no radiating factors. There are no alleviating or aggravating factors. Patient does report a history of heartburn. Patient states that she is usually able to get relief from her heartburn by belching but was unable to get relief this time. Patient reports smoking 2 cigarettes daily and drinking wine socially. She does report drinking a lot of coffee, unable to quantify. She denies any headache, lower extremity edema, nausea or vomiting, fever or chills, cough, shortness of breath, palpitations, changes in urination or bowel habits. No changes in appetite or weight. Patient denies any dizziness, numbness/weakness/tingling of the extremities. In the ED, her vital signs are stable. CBC was unremarkable. Coagulation panel was negative. D-dimer was negative. CMP showed glucose of 158. Lipase was negative. Troponin was less than 0.012, EKG showing normal sinus rhythm. Chest x-ray was negative. Patient is admitted for chest pain, rule out acute coronary syndrome with cardiology consultation. Review of Systems Pertinent positives and negatives as discussed in HPI, a complete review of systems was performed and all other systems are negative. Past Medical History Past Medical History: Cancer Additional Past Medical History / Comment(s): Breast cancer Right 2007, 2011 and 2014 HX OF Right BREAST CANCER WITH SURG, CHEMO AND RADIATION THERAPY- 2014, HX OF CANCEROUS TUMOR CHEST WALL- 2012. INTERNAL DERANGMENT RIGHT KNEE. History of Any Multi-Drug Resistant Organisms: None Reported Past Surgical History: Breast Surgery, Hysterectomy Additional Past Surgical History / Comment(s): RIGHT BREAST LUMPECTOMY, RIGHT MASTECTOMY, RT BREAST RECONSTRUCTION. Left breast lift and saline implant. Ovaries removed. Past Anesthesia/Blood Transfusion Reactions: Previous Problems w/ Anesthesia Additional Past Anesthesia/Blood Transfusion Reaction / Comment(s): STATES BREAKS OUT IN RASH FROM NARCOTICS Past Psychological History: No Psychological Hx Reported Smoking Status: Current every day smoker Past Alcohol Use History: Daily Past Drug Use History: None Reported - Past Family History Mother Family Medical History: Cancer Additional Family Medical History / Comment(s): CERVICAL CANCER Medications and Allergies Home Medications Medication Instructions Recorded Confirmed Type Multivitamins, Thera [Multivitamin] 1 tab PO AC-LUNCH 11/15/14 01/24/20 History Ascorbic Acid [Vitamin C] 500 mg PO AC-BRKFST 01/24/20 01/24/20 History Biotin 5 mg PO AC-LUNCH 01/24/20 01/24/20 History Collagen Powder 2 scoop PO AC-BRKFST 01/24/20 01/24/20 History Cyanocobalamin [Vitamin B-12 1,000 mcg SQ Q7D 01/24/20 01/24/20 History Injection] Krill Oil(Unknown Dose) 1 cap PO AC-LUNCH 01/24/20 01/24/20 History Viviscal 1 tab PO AC-LUNCH 01/24/20 01/24/20 History Zinc 50 mg PO AC-BRKFST 01/24/20 01/24/20 History Allergies Allergy/AdvReac Type Severity Reaction Status Date / Time latex Allergy Unknown Rash/Hives Verified 01/24/20 14:37 Penicillins Allergy Unknown Rash/Hives Verified 01/24/20 14:37 Sulfa (Sulfonamide Allergy Unknown Rash/Hives Verified 01/24/20 14:37 Antibiotics) codeine Allergy Rash/Hives Verified 01/24/20 14:37 narcotics Allergy Unknown Rash/Hives Uncoded 01/24/20 14:37 Physical Exam Vitals: Vital Signs Temp Pulse Resp BP Pulse Ox 01/24/20 17:08 67 16 124/45 96 01/24/20 15:50 66 20 116/61 97 01/24/20 15:40 70 20 120/72 98 01/24/20 15:37 69 20 120/72 98 01/24/20 14:34 97.9 F 82 18 127/85 100 Intake and Output 01/24/20 01/24/20 01/24/20 06:59 14:59 22:59 Other: Weight 86.183 kg General: [non toxic], [no distress], [appears at stated age] Derm: [warm], [dry] Head: [atraumatic], [normocephalic], [symmetric] Eyes: [EOMI], [no lid lag], [anicteric sclera] Mouth: [no lip lesion], [mucus membranes moist] Cardiovascular: [S1S2 reg], [no murmur], [positive posterior tibial pulse bilateral], Lungs: [CTA bilateral], [no rhonchi, no rales] , [no accessory muscle use] Abdominal: [soft], [ nontender to palpation], [no guarding], [no appreciable organomegaly] Ext: [no gross muscle atrophy], [no edema], [no contractures] Neuro: [ CN II-XI grossly intact], [no focal neuro deficits] Psych: [Alert], [oriented], [appropriate affect] Results CBC & Chem 7: 01/24/20 15:21 01/24/20 15:21 Labs: Abnormal Lab Results - Last 24 Hours (Table) 01/24/20 Range/Units 15:21 Glucose 158 H (74-99) mg/dL Assessment and Plan Assessment: Chest pain rule out acute coronary syndrome History of breast cancer Initial troponin is less than 0.012 with EKG showing normal sinus rhythm and T- wave abnormalities. Lipase is within normal limits. D-dimer is negative and patient has low concerns for PE. Plan is to trend troponin/EKG to rule out ACS. Echocardiogram has been ordered. Patient will be placed on telemetry mo nitoring and started on aspirin. Cardiology has been consulted and lipid panel has been ordered. Patient follows Dr. Christianson for her history of breast cancer. She recently underwent mammogram and will continue to follow-up with her oncologist for further management of her breast cancer. DVT prophylaxis: [SCD boots] Discussed with: [Patient] Anticipated discharge: [1-2 days] Anticipated discharge place: [Home] A total of [35] minutes was spent on the care of this complex patient more than 50% of the time was spent in counseling and care coordination. Patient names her son Christoph and daughter Mayra decision maker if she can't make decisions for herself. Patient will like to be full code. She does not have a PCP.
[2020-01-25 02:24] LABS: Hemoglobin A1C 5.7 % (4.0-6.0)
[2020-01-25 03:48] LABS: Cholesterol 151 mg/dL (<200); HDL Cholesterol 48 mg/dL (40-60); LDL Cholesterol,Calculated 89 mg/dL (0-99); Triglycerides 71 mg/dL (<150)
[2020-01-25] MEDS ORDERED: ASPIRIN 325 MG TAB PO SCH (09:00)
[2020-01-25] MEDS ORDERED: ASPIRIN 81 MG PO SCH (09:00)
--- NOTE | 2020-01-25 10:07 | P.CRDCN ---
History of Present Illness History of present illness: HISTORY OF PRESENTING ILLNESS This is a pleasant 59-year-old female past medical history significant for breast cancer s/p chemo, radiation, lumpectomy and subsequent mastectomy. S he denies prior history of coronary artery disease, hypertension, dyslipidemia or diabetes mellitus. 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 We have been asked to see in consultation for chest pain. She is seen and examined laying flat resting comfortably in bed in no acute distress. She states for the previous few weeks she has been experiencing intermittent discomfort under her left breast. The discomfort is described as a tight achy sensation. It is not associated with activity or exertion. She denies associated shortness of breath, dizziness, nausea, vomiting, palpitations or diaphoresis. At times she has noticed when she belches the discomfort improves, but not always. She also has been experiencing an increased sensation of bloating in her abdomen. GI cocktail and toradol given yesterday, did not notice much change in her symptoms. DIAGNOSTICS EKG reveals sinus mechanism with no acute ST or T wave abnormalities noted, poor R wave progression. Chest xray negative for an acute cardiopulmonary process. Laboratory reviewed, CBC unremarkable, d-dimer 0.31, sodium 137, potassium 4.0, creatinine 0.56, cardiac enzymes negative 3, LDL 89 and HDL 48. She takes no daily cardiac medications. REVIEW OF SYSTEMS At the time of my exam: CONSTITUTIONAL: Denies fever or chills. CARDIOVASCULAR: Denies chest pain, shortness of breath, orthopnea, PND or palpitations. RESPIRATORY: Denies cough. GASTROINTESTINAL: Denies abdominal pain, diarrhea, constipation, nausea or vom iting. MUSCULOSKELETAL: Denies myalgias. NEUROLOGIC: Denies numbness, tingling or weakness. ENDOCRINE: Denies fatigue, weight change, polydipsia or polyurina. GENITOURINARY: Denies burning, hematuria or urgency with micturation. HEMATOLOGIC: Denies history of anemia or bleeding. PHYSICAL EXAMINATION Blood pressure 101/63 heart rate 64 afebrile and maintaining oxygen saturation on room air. CONSTITUTIONAL: No apparent distress. HEENT: Head is normocephalic. Pupils are equal, round. Sclerae anicteric. Mucous membranes of the mouth are moist. No JVD. No carotid bruit. CHEST EXAMINATION: Lungs are clear to auscultation. No chest wall tenderness is noted on palpation or with deep breathing. HEART EXAMINATION: Regular rate and rhythm. S1, S2 heard. No murmurs, gallops or rub. ABDOMEN: Soft, nontender. Positive bowel sounds. EXTREMITIES: 2+ peripheral pulses, no lower extremity edema and no calf tenderness. NEUROLOGIC EXAMINATION: Patient is awake, alert and oriented x3. ASSESSMENT Chest pain, atypical. An acute coronary event has been ruled out. History of breast cancer PLAN An acute coronary event has been ruled out. Echocardiogram has been ordered and will be reviewed. Recommend proceeding with stress echocardiogram to assess for stress-induced cardiac ischemia. Stress test is normal with suggest further GI evaluation of discomfort. Thank you kindly for this consultation. Nurse Practitioner note has been reviewed, I agree with a documented findings and plan of care. Patient was seen and examined. Past Medical History Past Medical History: Cancer Additional Past Medical History / Comment(s): Breast cancer Right 2007, 2011 and 2014 HX OF Right BREAST CANCER WITH SURG, CHEMO AND RADIATION THERAPY- 2014, HX OF CANCEROUS TUMOR CHEST WALL- 2012. INTERNAL DERANGMENT RIGHT KNEE. History of Any Multi-Drug Resistant Organisms: None Reported Past Surgical History: Breast Surgery, Hysterectomy Additional Past Surgical History / Comment(s): RIGHT BREAST LUMPECTOMY, RIGHT MASTECTOMY, RT BREAST RECONSTRUCTION. Left breast lift and saline implant. Ovaries removed. Past Anesthesia/Blood Transfusion Reactions: Previous Problems w/ Anesthesia Additional Past Anesthesia/Blood Transfusion Reaction / Comment(s): STATES BREAKS OUT IN RASH FROM NARCOTICS Past Psychological History: No Psychological Hx Reported Smoking Status: Current every day smoker Past Alcohol Use History: Daily Additional Past Alcohol Use History / Comment(s): STATES (2) GLASSES WINE DAILY. Social drinker. 2 cigarettes daily Past Drug Use History: None Reported - Past Family History Mother Family Medical History: Cancer Additional Family Medical History / Comment(s): CERVICAL CANCER Medications and Allergies Home Medications Medication Instructions Recorded Confirmed Type Multivitamins, Thera [Multivitamin] 1 tab PO AC-LUNCH 11/15/14 01/24/20 History Ascorbic Acid [Vitamin C] 500 mg PO AC-BRKFST 01/24/20 01/24/20 History Biotin 5 mg PO AC-LUNCH 01/24/20 01/24/20 History Collagen Powder 2 scoop PO AC-BRKFST 01/24/20 01/24/20 History Cyanocobalamin [Vitamin B-12 1,000 mcg SQ Q7D 01/24/20 01/24/20 History Injection] Krill Oil(Unknown Dose) 1 cap PO AC-LUNCH 01/24/20 01/24/20 History Viviscal 1 tab PO AC-LUNCH 01/24/20 01/24/20 History Zinc 50 mg PO AC-BRKFST 01/24/20 01/24/20 History Allergies Allergy/AdvReac Type Severity Reaction Status Date / Time latex Allergy Unknown Rash/Hives Verified 01/24/20 14:37 Penicillins Allergy Unknown Rash/Hives Verified 01/24/20 14:37 Sulfa (Sulfonamide Allergy Unknown Rash/Hives Verified 01/24/20 14:37 Antibiotics) codeine Allergy Rash/Hives Verified 01/24/20 14:37 narcotics Allergy Unknown Rash/Hives Uncoded 01/24/20 14:37 Physical Exam Vitals: Vital Signs Temp Pulse Pulse Resp BP BP Pulse Ox 01/25/20 07:00 97.3 F L 64 16 101/63 94 L 01/25/20 04:00 98.0 F 67 17 109/72 98 01/25/20 00:00 97.9 F 65 17 108/51 99 01/24/20 20:00 65 17 01/24/20 18:24 97.9 F 64 18 122/62 98 01/24/20 17:08 67 16 124/45 96 01/24/20 15:50 66 20 116/61 97 01/24/20 15:40 70 20 120/72 98 01/24/20 15:37 69 20 120/72 98 01/24/20 14:34 97.9 F 82 18 127/85 100 Intake and Output 01/24/20 01/25/20 01/25/20 22:59 06:59 14:59 Other: # Voids 1 Weight 86.183 kg 86.7 kg Results 01/24/20 15:21 01/24/20 15:21 Cardiac Enzymes 01/24/20 01/24/20 01/24/20 Range/Units 15:21 15:21 21:16 AST 31 (14-36) U/L Troponin I <0.012 <0.012 (0.000-0.034) ng/mL 01/25/20 Range/Units 03:08 AST (14-36) U/L Troponin I <0.012 (0.000-0.034) ng/mL Coagulation 01/24/20 Range/Units 15:21 PT 9.5 (9.0-12.0) sec APTT 22.9 (22.0-30.0) sec Lipids 01/25/20 Range/Units 03:08 Triglycerides 71 (<150) mg/dL Cholesterol 151 (<200) mg/dL HDL Cholesterol 48 (40-60) mg/dL CBC 01/24/20 Range/Units 15:21 WBC 6.8 (3.8-10.6) k/uL RBC 3.97 (3.80-5.40) m/uL Hgb 12.6 (11.4-16.0) gm/dL Hct 37.8 (34.0-46.0) % Plt Count 328 (150-450) k/uL Comprehensive Metabolic Panel 01/24/20 Range/Units 15:21 Sodium 137 (137-145) mmol/L Potassium 4.0 (3.5-5.1) mmol/L Chloride 102 (98-107) mmol/L Carbon Dioxide 28 (22-30) mmol/L BUN 14 (7-17) mg/dL Creatinine 0.56 (0.52-1.04) mg/dL Glucose 158 H (74-99) mg/dL Calcium 9.5 (8.4-10.2) mg/dL AST 31 (14-36) U/L ALT 23 (4-34) U/L Alkaline Phosphatase 53 (38-126) U/L Total Protein 6.9 (6.3-8.2) g/dL Albumin 4.2 (3.5-5.0) g/dL Current Medications Generic Name Dose Route Start Last Admin Trade Name Freq PRN Reason Stop Dose Admin Acetaminophen 650 mg 01/24/20 18:19 01/24/20 20:08 Tylenol Tab PO 650 mg Q6HR PRN Administration Mild Pain or Fever > 100.5 Hydrocodone Bitart/Acetaminophen 1 each 01/24/20 18:19 [place] 5-325 PO Q4HR PRN Moderate Pain Alprazolam 0.5 mg 01/24/20 18:20 01/24/20 22:55 Xanax PO 0.5 mg BID PRN Administration Insomnia Aspirin 81 mg 01/25/20 09:00 Aspirin PO DAILY LANA Naloxone HCl 0.2 mg 01/24/20 18:19 Narcan IV Q2M PRN Opioid Reversal Nitroglycerin 0.4 mg 01/24/20 17:04 Nitrostat SUBLINGUAL Q5M PRN Chest Pain Intake and Output 01/24/20 01/25/20 01/25/20 22:59 06:59 14:59 Other: # Voids 1 Weight 86.183 kg 86.7 kg 01/24/20 15:21 01/24/20 15:21
--- NOTE | 2020-01-25 11:00 | ECHOF ---
Referral Reason:CP MEASUREMENTS -------- HEIGHT: 162.6 cm WEIGHT: 86.6 kg BP: 109/72 RVIDd: 3.4 cm (< 3.3) IVSd: 1.3 cm (0.6 - 1.1) LVIDd: 3.5 cm (3.9 - 5.3) LVPWd: 1.3 cm (0.6 - 1.1) IVSs: 1.8 cm LVIDs: 1.9 cm LVPWs: 1.6 cm LAESV Index (A-L): 23.23 ml/m Ao Diam: 2.5 cm (2.0 - 3.7) AV Cusp: 2.0 cm (1.5 - 2.6) MV EXCURSION: 17.405 mm (> 18.000) MV EF SLOPE: 94 mm/s (70 - 150) EPSS: 0.3 cm MV E Alex: 0.81 m/s MV DecT: 228 ms MV A Alex: 0.64 m/s MV E/A Ratio: 1.26 RAP: 5.00 mmHg RVSP: 35.22 mmHg FINDINGS -------- Sinus rhythm. This was a technically good study. The left ventricular size is normal. There is mild concentric left ventricular hypertrophy. Overa ll left ventricular systolic function is normal with, an EF between 60 - 65 %. The diastolic fillin g pattern is normal for the age of the patient 13.82. The right ventricle is mildly enlarged. Normal LA size by volume 22+/-6 ml/m2. The right atrium is mildly enlarged. Interatrial and interventricular septum intact. The aortic valve is trileaflet and appears structurally normal. There is no evidence of aortic regu rgitation. There is no evidence of aortic stenosis. Mild mitral regurgitation is present. Mild tricuspid regurgitation present. There is mild pulmonary hypertension. The right ventricular systolic pressure, as measured by Doppler, is 35.22mmHg. Trace/mild (physiologic) pulmonic regurgitation. The aortic root size is normal. Normal inferior vena cava with normal inspiratory collapse consistent with estimated right atrial pre ssure of 5 mmHg. There is no pericardial effusion. CONCLUSIONS -------- 1. Sinus rhythm. 2. This was a technically good study. 3. The left ventricular size is normal. 4. There is mild concentric left ventricular hypertrophy. 5. Overall left ventricular systolic function is normal with, an EF between 60 - 65 %. 6. The diastolic filling pattern is normal for the age of the patient 13.82 7. The right ventricle is mildly enlarged. 8. Normal LA size by volume 22+/-6 ml/m2. 9. The right atrium is mildly enlarged. 10. Interatrial and interventricular septum intact. 11. The aortic valve is trileaflet and appears structurally normal. 12. There is no evidence of aortic regurgitation. 13. There is no evidence of aortic stenosis. 14. Mild mitral regurgitation is present. 15. Mild tricuspid regurgitation present. 16. There is mild pulmonary hypertension. 17. The right ventricular systolic pressure, as measured by Doppler, is 35.22mmHg. 18. Trace/mild (physiologic) pulmonic regurgitation. 19. The aortic root size is normal. 20. Normal inferior vena cava with normal inspiratory collapse consistent with estimated right atrial pressure of 5 mmHg. 21. There is no pericardial effusion. INDUSTRIAL HEALTH AND SAFETY PROFESSOR: Yamileth Bosch RDCS
[2020-01-25 11:24] VITALS: BP 95/61; PULSE 63; RESP 18; TEMP 97.7
--- NOTE | 2020-01-25 15:23 | P.DS ---
Providers Date of admission: 01/24/20 16:51 Expected date of discharge: 01/25/20 Attending physician: Selene Ryan MD Consults: 01/24/20 17:04 Consult Physician Urgent Consulting Provider: Andrea Shirley Consult Reason/Comments: chest pain Do you want consulting provider notified?: Yes Primary care physician: Stated None Hospital Course: 59-year-old female with PMH of breast cancer post radiation, chemotherapy, lumpectomy and meniscectomy follows Dr. Christianson presents to the ED for left-sided chest pain. Patient reports the chest pain to be ongoing for for the past week but has progressively been getting worse over the last 2 days. Patient reports the pain to be left-sided and located under her left breast. Pain is pressure- like in sensation. Pain is 8 out of 10 in severity. There are no radiating factors. There are no alleviating or aggravating factors. Patient does report a history of heartburn. Patient states that she is usually able to get relief from her heartburn by belching but was unable to get relief this time. Patient reports smoking 2 cigarettes daily and drinking wine socially. She does report drinking a lot of coffee, unable to quantify. She denies any headache, lower extremity edema, nausea or vomiting, fever or chills, cough, shortness of breath, palpitations, changes in urination or bowel habits. No changes in appetite or weight. Patient denies any dizziness, numbness/weakness/tingling of the extremities. In the ED, her vital signs are stable. CBC was unremarkable. Coagulation panel was negative. D-dimer was negative. CMP showed glucose of 158. Lipase was negative. Troponin was less than 0.012, EKG showing normal sinus rhythm. Chest x-ray was negative. Patient is admitted for chest pain, rule out acute coronary syndrome with cardiology consultation. Troponins were less than 0.0123 with EKG showing normal sinus rhythm. ACS was ruled out. Cardiology was consulted and recommended echocardiogram and stress test. Echocardiogram showed EF 60-65% with mild diastolic dysfunction. Stress test was negative. Patient was seen and examined. No acute events overnight. Patient continues to report some tightness in her chest. She does complain of GERD symptoms. She has had a colonoscopy and EGD done under Dr. Galloway. She denies any shortness of breath or palpitations. No nausea or vomiting. No fever or chills. General: [non toxic], [no distress], [appears at stated age] Derm: [warm], [dry] Head: [atraumatic], [normocephalic], [symmetric] Eyes: [EOMI], [no lid lag], [anicteric sclera] Mouth: [no lip lesion], [mucus membranes moist] Cardiovascular: [S1S2 reg], [no murmur], [positive posterior tibial pulse bilateral], Lungs: [CTA bilateral], [no rhonchi, no rales] , [no accessory muscle use] Abdominal: [soft], [ nontender to palpation], [no guarding], [no appreciable organomegaly] Ext: [no gross muscle atrophy], [no edema], [no contractures] Neuro: [no focal neuro deficits] Psych: [Alert], [oriented], [appropriate affect] Chest pain rule out acute coronary syndrome GERD History of breast cancer Initial troponin is less than 0.012 3 with EKG showing normal sinus rhythm and T-wave abnormalities. Lipase is within normal limits. D-dimer is negative and patient has low concerns for PE. ACS ruled out. Echocardiogram has been ordered which shows EF 60-65% with mild diastolic dysfunction. Stress test was negative. Lipid panel is within normal limits. Cardiology has cleared for discharge. Patient advised to follow-up with Dr. Galloway for possible EGD and colonoscopy. Patient follows Dr. Christianson for her history of breast cancer. She recently underwent mammogram and will continue to follow-up with her oncologist for further management of her breast cancer. Pertinent Studies: Chest x-ray, echocardiogram, stress test Patient Condition at Discharge: Stable Plan - Discharge Summary Discharge Rx Participant: No New Discharge Prescriptions: Continue Multivitamins, Thera [Multivitamin (formulary)] 1 tab PO AC-LUNCH Zinc 50 mg PO AC-BRKFST Cyanocobalamin [Vitamin B-12 Injection] 1,000 mcg SQ Q7D Viviscal 1 tab PO AC-LUNCH Krill Oil(Unknown Dose) 1 cap PO AC-LUNCH Collagen Powder 2 scoop PO AC-BRKFST Ascorbic Acid [Vitamin C] 500 mg PO AC-BRKFST Biotin 5 mg PO AC-LUNCH Discharge Medication List Multivitamins, Thera [Multivitamin (formulary)] 1 tab PO AC-LUNCH 11/15/14 [Hist ory] Ascorbic Acid [Vitamin C] 500 mg PO AC-BRKFST 01/24/20 [History] Biotin 5 mg PO AC-LUNCH 01/24/20 [History] Collagen Powder 2 scoop PO AC-BRKFST 01/24/20 [History] Cyanocobalamin [Vitamin B-12 Injection] 1,000 mcg SQ Q7D 01/24/20 [History] Krill Oil(Unknown Dose) 1 cap PO AC-LUNCH 01/24/20 [History] Viviscal 1 tab PO AC-LUNCH 01/24/20 [History] Zinc 50 mg PO AC-BRKFST 01/24/20 [History] Follow up Appointment(s)/Referral(s): None,Stated [Primary Care Provider] - 1-2 days Tahmina White MD [STAFF PHYSICIAN] - 02/01/20 3:00 pm (At [facility] Patient Instructions/Handouts: Chest Pain (DC) Activity/Diet/Wound Care/Special Instructions: Diet: Regular Follow-up with PCP within 3 days of discharge. Follow-up with GI Dr. Galloway within 1 week of discharge. Discharge Disposition: HOME SELF-CARE
--- NOTE | 2020-01-26 11:33 | ECHOS ---
STRESS ECHOCARDIOGRAM INDICATIONS: Chest pain. MEDICATIONS: BASELINE HEART RATE: 59 BASELINE BLOOD PRESSURE: 140/66 MAXIMUM HEART RATE: 146 MAXIMUM BLOOD PRESSURE: 188/64 85% MPHR: 137 100% MPHR: 161 METS: 9.7 MAXIMUM STAGE REACHED: III TOTAL EXERCISE TIME: 8 minutes CLINICAL INFORMATION: Patient was exercised for a total period of 8 minutes. Peak heart rate of 146 was achieved. Maximum blood pressure of 188/64 mmHg was noted. The resting EKG shows normal sinus rhythm with normal NC interval and QRS duration and normal ST-T waves. No ST-segment depression suggestive of ischemia was noted. Patient did not complain of any chest pain during the test. The baseline echocardiographic images reveal normal left ventricular chamber size with normal left ventricular systolic function. In the immediate postexercise period, normal increase in the wall thickness and contractility was noted. FINAL IMPRESSION: This stress echocardiographic study is negative for stress-induced ischemia. EKG portion of the stress test is not suggestive of ischemia. Patient's exercise tolerance is normal. The patient did not complain of any chest pain during the test. MMODL / IJN: [id number] /
== END 2020-01-25 16:00 | disposition home or self-care (01) ==
LOC: EC 14:31 → 1SOBS 16:51
PROVIDERS: ADMIT Family Medicine; ATTEND Family Medicine
DX: R07.89 Other chest pain (principal); Z85.3 Personal history of malignant neoplasm of breast; K21.9 Gastro-esophageal reflux disease without esophagitis; F17.210 Nicotine dependence, cigarettes, uncomplicated; Z90.710 Acquired absence of both cervix and uterus; Z80.49 Family history of malignant neoplasm of other genital organs; Z92.3 Personal history of irradiation; Z92.21 Personal history of antineoplastic chemotherapy; Z88.0 Allergy status to penicillin; Z91.040 Latex allergy status; Z88.2 Allergy status to sulfonamides; Z88.5 Allergy status to narcotic agent; Z79.899 Other long term (current) drug therapy
CPT/HCPCS: 93005 ×2; 96361; 96374; 96375; 99285; 36415; 93306; 93351; 85379; 80061; 80053; 83690; 84484 ×2; 85025; 85610; 85730; 81003; 83036; 71046; G0378 ×2; J1885; C9113

== ENCOUNTER → 2020-09-04 | Outpatient (CLI) | payer MEDICAID ==
--- NOTE | 2020-09-05 10:57 | USB ---
Reason for exam: follow-up at short interval from prior study. History: Patient is postmenopausal, has history of breast cancer at age 47, and has history of endometrial cancer at age 26. Family history of breast cancer in paternal grandmother at age 80 and breast cancer in paternal aunt. US discontinued breast bx LT of the left breast, May 31, 2019. Malignant US RT VAD breast biopsy of the right breast, June 14, 2013. Benign US LT VAD breast biopsy of the left breast, June 14, 2013. Left Breast Aspiration of the left breast, June 14, 2013. Saline implant in the left breast, 2012. Breast lift of the left breast, 2012. Chemotherapy, 2012. Radiation therapy, 2012. Cancelled Left US Needle Biopsy of the left breast, June 26, 2011. Mastectomy of the right breast, October 09, 2010. Malignant US right guided VAD of the right breast, August 23, 2010. Malignant US right guided VAD of the right breast, August 23, 2010. Malignant US right guided VAD of the right breast, August 23, 2010. Benign right US cyst aspiration of the right breast, March 05, 2010. Malignant US right guided mammotome of the right breast, December 18, 2007. Excisional biopsy of the right breast. Physical Findings: Nurse did not find any significant physical abnormalities on exam. US Breast BILAT Technologist: Kelle Red Right complete breast ultrasound includes all four quadrants, the retroareolar region and axilla. Finding demonstrates no cystic or solid lesion seen of the chest wall s/p mastectomy. Left complete breast ultrasound includes all four quadrants, the retroareolar region and axilla. Finding demonstrates a 0.4 x 0.4 x 0.4cm circular, stable, benign lesion at 6 o'clock and a 1.4 x 0.9 x 0.5cm oval, hypoechoic lesion at axilla at skin versus 1.4 x 0.7 x 0.4cm previously, dermatology consult recommended. 1 o'clock and 7 o'clock area are no longer demonstrated. These results were verbally communicated with the patient and result sheet given to the patient on 09/04/20. ASSESSMENT: Probably benign, BI-RAD 3 RECOMMENDATION: Follow-up diagnostic mammogram and ultrasound of both breasts in 1 year. Patient declines mammogram. Manage patient on a clinical basis. Dermatology consult for axilla lesion.
== END | disposition home or self-care (01) ==
LOC: RADUSWWP 14:56
PROVIDERS: ATTEND Internal Medicine
DX: Z08 Encounter for follow-up examination after completed treatment for malignant neoplasm (principal); Z85.3 Personal history of malignant neoplasm of breast

== ENCOUNTER → 2021-02-15 | Outpatient (CLI) | payer MEDICAID ==
[2021-02-15 14:47] LABS: Basophils # (A) 0.09 X 10*3/uL (0.00-0.10); Basophils % (A) 1.1 %; Eosinophils # (A) 0.38 X 10*3/uL (0.04-0.35); Eosinophils % (A) 4.6 %; HCT 40.3 % (37.2-46.3); HGB 13.1 g/dL (12.0-15.0); Lymphocytes # (A) 2.42 X 10*3/uL (0.90-5.00); MCH 31.6 pg (27.0-32.0); MCHC 32.5 g/dL (32.0-37.0); MCV 97.3 fL (80.0-97.0); Mean Platelet Volume 10.2 fL (9.5-12.2); Monocytes # (A) 0.69 X 10*3/uL (0.20-1.00); Monocytes % (A) 8.3 %; Neutrophils # (A) 4.74 X 10*3/uL (1.80-7.70); Neutrophils % (A) 56.6 %; Platelet Count 319 X 10*3/uL (140-440); RBC 4.14 X 10*6/uL (4.10-5.20); RDW 13.2 % (11.5-14.5); WBC 8.35 X 10*3/uL (4.50-10.00)
[2021-02-15 18:24] LABS: T4, Free (Free Thyroxine) 1.1 ng/dL (0.80-1.80)
[2021-02-15 18:46] LABS: African American GFR (CKD) 92.9 (60.0-200.0); Albumin 4.6 g/dL (3.80-4.90); Albumin/Globulin Ratio 2.19 (1.60-3.17); Anion Gap 8.8 mmol/L (4.00-12.00); BUN/Creat Ratio 12.5 Ratio (12.00-20.00); Calcium 9.5 mg/dL (8.7-10.3); Carbon Dioxide 27.2 mmol/L (21.6-31.8); Chol/HDL Ratio 3.3; Globulin 2.1 g/dL (1.6-3.3); LDL Cholesterol,Calculated 115.4 mg/dL (0.0-131.0); Non-African American GFR(CKD) 80.1 (60.0-200.0); Potassium 4.1 mmol/L (3.5-5.5); Total Bilirubin 0.9 mg/dL (0.3-1.2); Total Protein 6.7 g/dL (6.2-8.2); VLDL Calculation 24.6 mg/dL (5.00-40.00)
[2021-02-15 18:51] LABS: Hemoglobin A1C 6.1 % (4.0-6.0)
== END | disposition home or self-care (01) ==
LOC: LABWHC1 08:06
PROVIDERS: ATTEND Registered Nurse Oncology
DX: C50.919 Malignant neoplasm of unspecified site of unspecified female breast (principal); G47.00 Insomnia, unspecified; E07.9 Disorder of thyroid, unspecified; R73.9 Hyperglycemia, unspecified; Z71.3 Dietary counseling and surveillance
CPT/HCPCS: 36415; 80053; 80061; 82652; 83036; 84439; 84443; 84481; 85025

== ENCOUNTER → 2021-02-19 | Outpatient (CLI) | payer MEDICAID ==
--- NOTE | 2021-02-19 12:39 | US ---
EXAMINATION TYPE: US extremity nonvasc mass LT DATE OF EXAM: 02/19/2021 COMPARISON: NONE CLINICAL HISTORY: 60-year-old female C50.919, G47.00, Z71.3. Patient with 2 sites of fullness and/or pain. TECHNIQUE: Targeted scannin- Left antecubital region, area of fullness and pain. 2- Pain along the left neck, no palpable. FINDINGS: The 2 areas of concern are scanned. No discrete lesion, lymph nodes, or fluid collections are visual ized. IMPRESSION: 1. Targeted scanning at the left antecubital region site of fullness and pain and also along the left side of the neck at the site of pain shows no discrete sonographic abnormality. 2. If any persisting or enlarging palpable areas are identified, the areas can be rescanned.
--- NOTE | 2021-02-21 11:59 | USB ---
Reason for exam: clinical finding. History: Patient is postmenopausal, has history of breast cancer at age 47, and has history of endometrial cancer at age 26. Family history of breast cancer in paternal grandmother at age 80 and breast cancer in paternal aunt. US discontinued breast bx LT of the left breast, May 31, 2019. Malignant US RT VAD breast biopsy of the right breast, June 14, 2013. Benign US LT VAD breast biopsy of the left breast, June 14, 2013. Left Breast Aspiration of the left breast, June 14, 2013. Saline implant in the left breast, 2012. Breast lift of the left breast, 2012. Chemotherapy, 2012. Radiation therapy, 2012. Cancelled Left US Needle Biopsy of the left breast, June 26, 2011. Mastectomy of the right breast, October 09, 2010. Malignant US right guided VAD of the right breast, August 23, 2010. Malignant US right guided VAD of the right breast, August 23, 2010. Malignant US right guided VAD of the right breast, August 23, 2010. Benign right US cyst aspiration of the right breast, March 05, 2010. Malignant US right guided mammotome of the right breast, December 18, 2007. Excisional biopsy of the right breast. Indicated problem(s): palpable abnormality in the right breast. Physical Findings: Nurse Summary: right axilla swelling marker placed on area patient states on and off (nurse tanika). US Breast BILAT Technologist: Kelle Red Left complete breast ultrasound includes all four quadrants, the retroareolar region and axilla. Finding demonstrates a 0.4 x 0.3 x 0.3cm stable and benign lesion at 10 o'clock. Underlying left breast implant. Right complete breast ultrasound includes all four quadrants, the retroareolar region and axilla. Finding demonstrates no abnormality at right axillary fullness, site of concern. These results were verbally communicated with the patient and result sheet given to the patient on 02/19/21. ASSESSMENT: Benign, BI-RAD 2 RECOMMENDATION: Ultrasound of both breasts in 1 year. The patient declines mammograms.
== END | disposition home or self-care (01) ==
LOC: RADUSWWP 10:53
PROVIDERS: ATTEND Internal Medicine Hematology & Oncology
DX: C50.919 Malignant neoplasm of unspecified site of unspecified female breast (principal); G47.00 Insomnia, unspecified; Z71.3 Dietary counseling and surveillance

== ENCOUNTER → 2021-04-12 | Outpatient (CLI) | payer MEDICAID ==
--- NOTE | 2021-04-12 09:49 | XR ---
Left elbow HISTORY: Swelling,C50.919 G47.00 Z71.3 3 views the left elbow Bone mineralization, joint spaces and alignment are maintained. No evident elbow joint effusion. Mild swelling present posteriorly. IMPRESSION: Correlate for olecranon bursitis.
== END | disposition home or self-care (01) ==
LOC: RADXRMAIN 09:17
PROVIDERS: ATTEND Internal Medicine Hematology & Oncology
DX: M79.89 Other specified soft tissue disorders (principal)

== ENCOUNTER → 2021-04-18 | Outpatient (CLI) | payer MEDICAID ==
--- NOTE | 2021-04-18 14:41 | CT ---
EXAMINATION TYPE: CT ChestAbdPelvis w con DATE OF EXAM: 04/18/2021 COMPARISON: 06/05/2017 HISTORY: 60-year-old female breast cancer, C50.919. TECHNIQUE: Contiguous axial scanning of the chest, abdomen, and pelvis performed with IV Contrast, pa tient injected with 100 ml mL of Isovue 300. Delayed images through the kidneys were obtained. Nichole l/sagittal reconstructions performed. CT DLP: 1244.00 mGycm Automated exposure control for dose reduction was used. FINDINGS: CHEST: Heart normal size without pericardial effusion. Aorta normal caliber with conventional arch vessel branching anatomy. There are postsurgical changes of right mastectomy and right axillary node dissection. A left breast prosthesis is also redemonstrated. No thoracic lymph adenopathy by CT size criteria. Mild reticular change in the subpleural region of the anterior right midlung/right upper lobe compati ble with post treatment change. No consolidation or pleural effusion. No suspicious pulmonary nodules. ABDOMEN: Tiny 5 mm hypodensity anterior mid liver, axial image 20 series 6 unchanged from 2017 compatible with a tiny benign cyst. No biliary ductal dilatation. Portal venous system is patent. Gallbladder, adrenal glands, kidneys, spleen, and pancreas within normal limits. No dilated small bowel, free fluid, or free air. No mesenteric or retroperitoneal lymphadenopathy. Tiny fatty umbilical hernia. Normal appendix. Oral contrast progressed to the descending colon. Sigmoid diverticulosis. No pericol onic inflammatory change. PELVIS: Bladder urine distended. Uterus surgically absent. Pelvic phleboliths. Neither ovary clearly identifi ed. No abnormal fluid collection in the pelvis or pelvic lymphadenopathy. BONES: Mild degenerative change of the hips. Moderate to advanced degenerative disc disease L4-L5 and L5-S1. No osseous destructive process. IMPRESSION: 1. STABLE EXAM STATUS POST RIGHT MASTECTOMY AND RIGHT AXILLARY NODE DISSECTION. LEFT BREAST IMPLANT A LSO IN PLACE. 2. NO EVIDENCE FOR RECURRENT OR METASTATIC DISEASE. 3. SIGMOID DIVERTICULOSIS.
== END | disposition home or self-care (01) ==
LOC: RADCTMAIN 10:04
PROVIDERS: ATTEND Internal Medicine Hematology & Oncology
DX: C50.919 Malignant neoplasm of unspecified site of unspecified female breast (principal); K57.30 Diverticulosis of large intestine without perforation or abscess without bleeding; Z90.11 Acquired absence of right breast and nipple; Z98.82 Breast implant status
CPT/HCPCS: 71260; 74177; Q9967

== ENCOUNTER → 2021-05-04 | Day surgery (SDC) | payer MEDICAID ==
[2021-05-02 15:23] VITALS: BMI 32.5
[~2021-05-04] MED LIST: IV FLUID CONTINUATION 1,000 ML IV ONE; LACTATED RINGERS 1,000 ML IV SCH; LIDOCAINE 1% (10MG/ML) FOR IV START INTRADERMA ONE; PROPOFOL 10 MG/ML 20 ML VIAL IV ONE
[2021-05-04 09:07] VITALS: TEMP 98.4
--- NOTE | 2021-05-04 10:05 | P.PCN ---
Date of Procedure: 05/04/21 Procedure(s) Performed: Brief history: Patient is a pleasant 60-year-old white female scheduled for an elective upper endoscopy as well as colonoscopy as a part of evaluation of GERD and screening for colon cancer Procedure performed: Esophagogastroduodenoscopy with biopsy Colonoscopy Preoperative diagnosis: GERD Screening for colon cancer Anesthesia: [facility] [place] Procedure: After informed consent was obtained from the patient was brought into the endoscopy unit and IV sedation was administered by anesthesia under continuous monitoring. Initially upper endoscopy was done. The Olympus GF 160 video endoscope was inserted inserted into the mouth and esophagus intubated without any difficulty and was gradually advanced into the stomach and duodenum and carefully examined. The bulb and second part of the duodenum appeared normal. The scope was then withdrawn into the stomach adequately insufflated with air and upon careful examination the antrum had mild gastritis and biopsies were done from this area. The body, cardia and fundus appeared normal. The scope was then withdrawn into the esophagus. Small sliding Hernia noted. The GE junction was located at 40 cm to the incisors. It appeared regular with a short tongue of Hay's at appearing mucosa extending 3 mm proximal to the GE junc tion that was biopsied. Also there were 2 erosions consistent with LA grade B reflux esophagitis. Rest of the esophagus appeared normal. Patient tolerated the procedure well. At this time the patient continued to remain sedation. Initial digital rectal examination was normal. Olympus CF 160 video colonoscope was then inserted into the rectum and gradually advanced to the cecum without any difficulty. Careful examination was performed as the scope was gradually being withdrawn. The prep was excellent. The cecum, ascending colon, transverse colon, descending colon, sigmoid colon and rectum appeared normal. Scattered sigmoid diverticulosis. Retroflexion was performed in the rectum and no lesions were noted. Patient tolerated the procedure well. Impression: 1. Upper endoscopy revealed mild antral gastritis, short segment Hay's esophagus and LA grade B reflux esophagitis 2. Colonoscopy was within normal limits with no evidence of colitis or colorectal neoplasia. Scattered sigmoid diverticulosis Recommendations: Findings of this examination were discussed with the patient as well as her family. She was advised to follow with the biopsy results. If the biopsy confi ender the presence of Hay's esophagus he can have a repeat upper endoscopy in 2 years. She was advised to have a repeat screening colonoscopy in 10 years.
[2021-05-04 10:24] VITALS: BP 111/73; PULSE 60; RESP 17
== END ==
LOC: ORWHC2ENDO 08:41
PROVIDERS: ATTEND Internal Medicine Gastroenterology
DX: Z12.11 Encounter for screening for malignant neoplasm of colon (principal); Z85.3 Personal history of malignant neoplasm of breast; K21.00 Gastro-esophageal reflux disease with esophagitis, without bleeding; K57.30 Diverticulosis of large intestine without perforation or abscess without bleeding; F17.200 Nicotine dependence, unspecified, uncomplicated; K22.70 Barrett's esophagus without dysplasia; Z88.0 Allergy status to penicillin; Z88.2 Allergy status to sulfonamides; Z88.5 Allergy status to narcotic agent; Z91.040 Latex allergy status
CPT/HCPCS: 88305; 43239; J2704; G0121; 45378

== ENCOUNTER → 2023-06-03 | Outpatient (CLI) | payer MEDICAID ==
--- NOTE | 2023-06-03 18:06 | USB ---
Reason for Exam: Clinical finding. Patient History: Menarche at age 13. First Full-Term at age 21. Left ovary removed at age 53. Right ovary removed at age 53. Hysterectomy at age 26. Postmenopausal. Breast cancer, age 47. Endometrial cancer, age 26. Excisional Biopsy on the Right side. 06/14/2013, Benign Core Biopsy on the left side. 06/14/2013, Cyst Aspiration on the Left side. 06/14/2013, Malignant Core Biopsy on the right side. 08/23/2010, Malignant Core Biopsy on the right side. 08/23/2010, Malignant Core Biopsy on the right side. 08/23/2010, Malignant Core Biopsy on the right side. 03/05/2010, Benign Cyst Aspiration on the right side. 12/18/2007, Malignant Core Biopsy on the right side. 2012, Chemotherapy. 2012, Radiation Therapy. 05/31/2019, US discontinued breast bx LT on the left side. 06/26/2011, Cancelled Left US Needle Biopsy on the left side. 2012, Implant on the left side. Paternal grandmother had breast cancer, age 80. Paternal aunt had breast cancer. Technique: Method: Whole Breast Handheld. Prior Study Comparison: 12/26/2011 Left Diagnostic Mammogram, [facility]. 10/31/2015 Left Diagnostic Mammogram, [facility]. 11/21/2016 Left Diagnostic Mammogram, [facility]. Findings: The whole breast of both breasts, the axilla of both breasts and the retroareolar of the left breast were scanned. A complete US of all four quadrants of the bilateral breasts, axilla, and retro-areolar region were reviewed. The patient is status post right mastectomy. No solid or cystic lesion or axillary lymphadenopathy is identified. Particular attention to the sites of fullness experienced by the patient. On the left, underlying breast implant is noted. No solid or cystic lesion or axillary lymphadenopathy. Patient is due for a screening mammogram on the left. Overall Assessment: Incomplete: need additional imaging evaluation, BI-RAD 0 Management: Screening Mammogram of the left breast. Further clinical management on the right for the areas of fullness felt by the patient. Continue monthly self breast exams. These results and upper included additional follow-up of suspicious palpable abnormalities. Results were given to the patient verbally at the time of exam. Electronically signed and approved by: Rajesh Andrews M.D. Radiologist
== END | disposition home or self-care (01) ==
LOC: RADUSWWP 14:50
PROVIDERS: ATTEND Internal Medicine Hematology & Oncology
DX: C50.919 Malignant neoplasm of unspecified site of unspecified female breast (principal); G47.00 Insomnia, unspecified; Z71.3 Dietary counseling and surveillance; Z80.3 Family history of malignant neoplasm of breast

== ENCOUNTER → 2023-07-31 | Outpatient (CLI) | payer MEDICAID ==
--- NOTE | 2023-07-31 18:32 | US ---
EXAMINATION TYPE: US abdomen limited DATE OF EXAM: 07/31/2023 COMPARISON: NONE CLINICAL INDICATION: Female, 63 years old with history of R19.00; patient has felt non specific lump/ swelling x 1 yr. at the LUQ. No focal area. May be related to hx of cancer and subsequent surgeries Assess for hernia at location of: spigelian region as well as greater LUQ Findings: Soccer Commentator notes: Several images taken with and without valsalva at LUQ, no wall defects appreciated on US, palpable areas may correspond to ribs. Deeper imaging was used to assess for obvious bowel ab normalities IMPRESSION: If persistent or enlarging palpable abnormality, consider CT evaluation. Targeted scannin g along the anterior wall of the left upper quadrant shows no discrete abdominal wall defect or herni a. Palpable areas may correspond to ribs.
== END | disposition home or self-care (01) ==
LOC: RADUSWWP 10:16
PROVIDERS: ATTEND Surgery Plastic and Reconstructive Surgery
DX: R19.02 Left upper quadrant abdominal swelling, mass and lump (principal)
CPT/HCPCS: 76705

== ENCOUNTER → 2023-07-31 | Outpatient (CLI) | payer MEDICAID ==
[2023-07-31 16:25] LABS: Basophils % (A) 1.2 %; Eosinophils # (A) 0.25 X 10*3/uL (0.04-0.35); HCT 39.1 % (37.2-46.3); HGB 12.7 d/dL (12.0-15.0); Lymphocytes # (A) 2.41 X 10*3/uL (0.90-5.00); Lymphocytes % (A) 29.2 %; MCH 31.4 pg (27.0-32.0); MCHC 32.5 d/dL (32.0-37.0); MCV 96.5 FL (80.0-97.0); Mean Platelet Volume 10.4 FL (9.5-12.2); Monocytes # (A) 0.58 X 10*3/uL (0.20-1.00); NRBC Per 100 WBC 0 X 10*3/uL (0.00-0.01); Neutrophils # (A) 4.86 X 10*3/uL (1.80-7.70); Neutrophils % (A) 59.1 %; Platelet Count 282 X 10*3/uL (140-440); RBC 4.05 X 10*6/uL (4.10-5.20); RDW 14.6 % (11.5-14.5); WBC 8.24 X 10*3/uL (4.50-10.00)
[2023-07-31 16:32] LABS: ALT 22 U/L (8-44); AST 22 U/L (13-35); Albumin 4.4 d/dL (3.8-4.9); Alkaline Phosphatase 64 U/L (41-126); BUN/Creat Ratio 16.29 Ratio (12.00-20.00); Blood Urea Nitrogen 11.4 mg/dL (9.0-27.0); Calcium 9.7 mg/dL (8.7-10.3); Carbon Dioxide 27.8 mmol/L (21.6-31.8); Chloride 104 mmol/L (96-109); Chol/HDL Ratio 2.45 Ratio; Globulin 2.2 d/dL (1.6-3.3); Glucose 107 mg/dL (70-110); LDL Cholesterol,Calculated 105.8 mg/dL (0.0-131.0); Potassium 4.8 mmol/L (3.5-5.5); Sodium 143 mmol/L (135-145); Total Bilirubin 0.8 mg/dL (0.3-1.2); Total Protein 6.6 d/dL (6.2-8.2); VLDL Calculation 13.34 mg/dL (5.00-40.00)
[2023-07-31 20:43] LABS: Appearance,Urine Clear (Clear); Bilirubin,Urine Negative (Negative); Blood,Urine Negative (Negative); Color,Urine Yellow (Yellow); Ketones,Urine Negative (Negative); Nitrite,Urine Negative (Negative); PH, Urine 6.5; Specific Gravity,Urine 1.018 (1.001-1.030); Urobilinogen,Urine 0.2 E.U./DL
[2023-07-31 20:50] LABS: Bacteria,Urine 1+ (None Seen)
== END | disposition home or self-care (01) ==
LOC: LABWHC1 10:30
PROVIDERS: ATTEND Internal Medicine Hematology & Oncology
DX: C50.919 Malignant neoplasm of unspecified site of unspecified female breast (principal); G47.00 Insomnia, unspecified; E78.2 Mixed hyperlipidemia; R73.9 Hyperglycemia, unspecified; Z71.3 Dietary counseling and surveillance
CPT/HCPCS: 36415; 80053; 80061; 81001; 83036; 84443; 85025

== ENCOUNTER 2023-08-01 06:30 | Day surgery (SDC) | payer MEDICAID ==
[2023-07-31 11:32] VITALS: BMI 31.7
[~2023-08-01 06:30] MED LIST changes: +ACETAMINOPHEN TAB 500 MG TAB PO PRN; +HEPARIN SODIUM,PORCINE/PF 5,000 UNIT/0.5 ML SYRINGE SQ PRN; -IV FLUID CONTINUATION 1,000 ML IV ONE; -LIDOCAINE 1% (10MG/ML) FOR IV START INTRADERMA ONE; +ONDANSETRON 4 MG/2 ML VIAL IVP PRN; -PROPOFOL 10 MG/ML 20 ML VIAL IV ONE
--- NOTE | 2023-08-01 06:58 | P.GSHP ---
History of Present Illness H&P Date: 08/01/23 CHIEF COMPLAINT: Scalp tumor HISTORY OF PRESENT ILLNESS: The patient is a 63 year-old male with over 6 month history of growing scalp mass. She reports discomfort. She presents today for surgical excision. PAST MEDICAL HISTORY: Please see list. PAST SURGICAL HISTORY: Please see list. MEDICATIONS: Please see list. ALLERGIES: Please see list. SOCIAL HISTORY: No illicit drug use FAMILY HISTORY: No reports of Crohn disease or ulcerative colitis. REVIEW OF ORGAN SYSTEMS: CONSTITUTIONAL: No reports of fevers or chills. GI: Denies any blood in stools or constipation. PHYSICAL EXAM: VITAL SIGNS: Stable SKIN: Well perfused. Good skin turgor. 4 cm lesion overlying the occiput of the posterior scalp. Musculoskeletal: No clubbing cyanosis or edema GENERAL: Well developed and in no acute distress. Pleasant. HEENT: No sclera icterus. Extraocular movements grossly intact. Moist buccal mucosa. Head is atraumatic, normocephalic. Hears conversational speech. No nasal drainage. NECK: Supple without lymphadenopathy. No JV distention. CHEST: Non-labored respirations and equal bilateral excursions. CARDIOVASCULAR: Regular rate and rhythm. Palpable 2+ radial pulses. ABDOMEN: Soft. Non-tender. Nondistended. NEUROLOGIC: No focal or lateralizing signs. PSYCH: Appropriate affect. Alert and oriented to person, place and time. ASSESSMENT: 1. Posterior scalp tumor, over 5 cm PLAN: 1. Will proceed of excision of posterior scalp tumor 2. DVT prophylaxis. 3. Antibiotic prophylaxis. 4. Time of recovery, at least one week. 5. Benefits and risks including numbness, decreased sensation, pain, cosmetic deformity were reviewed Past Medical History Past Medical History: Cancer Additional Past Medical History / Comment(s): Breast cancer Right WITH SURG, CHEMO AND RADIATION, HX OF CANCEROUS TUMOR CHEST WALL- 2012 History of Any Multi-Drug Resistant Organisms: None Reported Past Surgical History: Breast Surgery, Hysterectomy Additional Past Surgical History / Comment(s): RIGHT BREAST LUMPECTOMY, RIGHT MASTECTOMY, RT BREAST RECONSTRUCTION AND LATER REMOVAL, Left breast surgery, ovaries removed Past Anesthesia/Blood Transfusion Reactions: Previous Problems w/ Anesthesia Additional Past Anesthesia/Blood Transfusion Reaction / Comment(s): STATES BREAKS OUT IN RASH FROM NARCOTICS Past Psychological History: No Psychological Hx Reported Smoking Status: Current some day smoker Past Alcohol Use History: Occasional Additional Past Alcohol Use History / Comment(s): . Past Drug Use History: None Reported - Past Family History Mother Family Medical History: Cancer Additional Family Medical History / Comment(s): CERVICAL CANCER Medications and Allergies Home Medications Medication Instructions Recorded Confirmed Type Multivitamins, Thera [Multivitamin 1 tab PO DAILY 11/15/14 07/31/23 History (formulary)] Ascorbic Acid [Vitamin C] 500 mg PO DAILY 01/24/20 07/31/23 History Biotin 5 mg PO DAILY 01/24/20 07/31/23 History Cholecalciferol [Vitamin D3 (25 25 mcg PO DAILY 07/31/23 08/01/23 History Mcg = 1000 Iu)] Allergies Allergy/AdvReac Type Severity Reaction Status Date / Time latex Allergy Unknown Rash/Hives Verified 08/01/23 06:47 Penicillins Allergy Unknown Rash/Hives Verified 08/01/23 06:47 Sulfa (Sulfonamide Allergy Unknown Rash/Hives Verified 08/01/23 06:47 Antibiotics) codeine Allergy Rash/Hives Verified 08/01/23 06:47 narcotics Allergy Unknown Rash/Hives Uncoded 08/01/23 06:47
[2023-08-01] MEDS ORDERED: fentaNYL (PF) 50 MCG/ML 2 ML AMP IV PRN (07:00)
[2023-08-01] MEDS ORDERED: MIDAZOLAM 2 MG/2 ML VIAL IV PRN (07:00)
[2023-08-01] MEDS ORDERED: LIDOCAINE 1% (10MG/ML) FOR IV START INTRADERMA ONE (07:18)
[2023-08-01] MEDS ORDERED: DEXAMETHASONE SOD PHOSPHATE 4 MG/ML 1 ML VIAL IVP ONE (07:21)
[2023-08-01] MEDS ORDERED: LIDOCAINE 2% INJ 20 MG/ML (2 ML VIAL) ONE (07:28)
[2023-08-01] MEDS ORDERED: PROPOFOL 10 MG/ML 20 ML VIAL IV ONE (07:28)
[2023-08-01] MEDS ORDERED: KETOROLAC 15 MG/ML 1 ML VIAL ONE (07:28)
[2023-08-01] MEDS ORDERED: MIDAZOLAM 2 MG/2 ML VIAL ONE (07:28)
[2023-08-01] MEDS ORDERED: SUCCINYLCHOLINE CHLORIDE 200 MG/10 ML VIAL IV ONE (07:28)
[2023-08-01] MEDS ORDERED: ePHEDrine 50 MG/ML 1 ML VIAL ONE (07:28)
[2023-08-01] MEDS ORDERED: BACITRACIN ZINC 500 UNIT/GM OINT 28.4 GM TUBE TOPICAL ONE (08:28)
[2023-08-01] MEDS ORDERED: LIDOCAINE 1%-EPI 1:100,000 50 ML VIAL SQ ONE ×2 (08:29)
--- NOTE | 2023-08-01 09:10 | P.OP ---
Date of Procedure: 08/01/23 Description of Procedure: SURGEON: WANDA LEONG MD PREOPERATIVE DIAGNOSES: 1. Posterior occipital scalp tumor, 3 cm POSTOPERATIVE DIAGNOSES: 1. Posterior occipital scalp tumor, 3 cm PROCEDURES PERFORMED: 1. Excision of posterior occipital scalp tumor, 2 cm, subcutaneous with complex closure, 5-cm Anesthesia: GETA, local Estimated Blood Loss (ml): 5 Pathology: other (scalp mass) Condition: stable Disposition: same day COMPLICATIONS: None. Operative Findings: 1. Excision of deep subcutaneous tumor with wide undermining for closure 5 cm. INDICATIONS: The patient is a 63-year-old female who presents with scalp tumor. Benefits and risks of surgical intervention were described including bleeding, infection. Informed consent was obtained. DESCRIPTION OR PROCEDURE: In the preoperative area, the area of concern was marked with indelible marker. Patient was brought into the operating room. After general induction, he was positioned in prone position. The scalp was prepped and draped in a standard sterile fashion. Timeout protocol was confirmed with the surgical team regarding the patient's name, procedure to be performed including preoperative medications. DVT prophylaxis was confirmed. A field block was placed of the left occipital scalp. A transverse elliptical incision using #15 blade was made along the marking into the deep subcutaneous tissue. Electro-Bovie cautery was used to incise to the fascia with dissection and elevation of the mass. 3-0 Vicryl for the deep subcutaneous tissue was placed. Final running suture of 3-0 Prolene was placed to completely close the dermis. Attention was brought to the forehead tumor. A field block was placed of the left forehead tumor along the hair line. A transverse elliptical incision using #15 blade was made along the marking into the deep subcutaneous tissue. Electro-Bovie cautery was used to incise to the fascia with dissection and elevation of the mass. 3-0 Vicryl for the deep subcutaneous tissue was placed. Final running suture of 3-0 Prolene was placed to completely close the dermis. The skin was cleansed with hydrogen peroxide followed by bacitracin ointment along the closure. At the end of the procedure, needle, sponge, and instrument count was verified correct by salesperson surgical appliances. The patient tolerated the procedure well. Plan - Discharge Summary Discharge Rx Participant: No New Discharge Prescriptions: New Bacitracin Zinc Oint 1 applic TOPICAL DAILY #28 gm Ibuprofen [Motrin] 600 mg PO Q8HR PRN #30 tab PRN Reason: Pain Acetaminophen Tab [Tylenol Tab] 1,000 mg PO Q6HR PRN #30 tablet PRN Reason: Pain Continue Multivitamins, Thera [Multivitamin (formulary)] 1 tab PO DAILY Ascorbic Acid [Vitamin C] 500 mg PO DAILY Biotin 5 mg PO DAILY Cholecalciferol [Vitamin D3 (25 Mcg = 1000 Iu)] 25 mcg PO DAILY Discharge Medication List Multivitamins, Thera [Multivitamin (formulary)] 1 tab PO DAILY 11/15/14 [History] Ascorbic Acid [Vitamin C] 500 mg PO DAILY 01/24/20 [History] Biotin 5 mg PO DAILY 01/24/20 [History] Cholecalciferol [Vitamin D3 (25 Mcg = 1000 Iu)] 25 mcg PO DAILY 07/31/23 [History] Acetaminophen Tab [Tylenol Tab] 1,000 mg PO Q6HR PRN #30 tablet 08/01/23 [Rx] Bacitracin Zinc Oint 1 applic TOPICAL DAILY #28 gm 08/01/23 [Rx] Ibuprofen [Motrin] 600 mg PO Q8HR PRN #30 tab 08/01/23 [Rx] Follow up Appointment(s)/Referral(s): Wanda Leong MD [STAFF PHYSICIAN] - 08/12/23 4:00 pm Patient Instructions/Handouts: How to Stop Smoking (ED), General Mass Excision (GEN) Activity/Diet/Wound Care/Special Instructions: Use ice along the dressing to minimize bruising. May gently wash around the dressing with soap and water. Apply bacitracin daily after washing the area. Please take Tylenol, Aleve, or ibuprofen scheduled for next 2-3 days. Discharge Disposition: HOME SELF-CARE
[2023-08-01 09:11] VITALS: TEMP 96.9
[2023-08-01] MEDS ORDERED: droPERidol 5 MG/2 ML VIAL IVP ONE (09:39)
[2023-08-01 10:09] VITALS: BP 115/58; PULSE 71; RESP 18
== END 2023-08-01 10:48 | disposition home or self-care (01) ==
LOC: OR 06:30
PROVIDERS: ATTEND Surgery Plastic and Reconstructive Surgery
DX: L72.11 Pilar cyst (principal); F17.210 Nicotine dependence, cigarettes, uncomplicated; F10.90 Alcohol use, unspecified, uncomplicated; Z80.8 Family history of malignant neoplasm of other organs or systems; Z90.722 Acquired absence of ovaries, bilateral; Z91.040 Latex allergy status; Z85.3 Personal history of malignant neoplasm of breast; Z88.2 Allergy status to sulfonamides; Z88.1 Allergy status to other antibiotic agents; Z88.5 Allergy status to narcotic agent; Z88.0 Allergy status to penicillin
CPT/HCPCS: 88304; 21012; J2250; J0330; J1100; J0690; J2405; J1885; J2704; J1790; J1644; J2001

== ENCOUNTER → 2025-02-01 | Outpatient (CLI) | payer MEDICAID ==
--- NOTE | 2025-02-01 13:18 | USB ---
Reason for Exam: Hx of breast cancer, mastectomy. Patient History: Menarche at age 13. First Full-Term at age 21. Left ovary removed at age 53. Right ovary removed at age 53. Hysterectomy at age 26. Postmenopausal. Breast cancer, age 47. Endometrial cancer, age 26. 10/09/2010, Mastectomy on the Right side. Excisional Biopsy on the Right side. 06/14/2013, Benign Core Biopsy on the left side. 06/14/2013, Cyst Aspiration on the Left side. 06/14/2013, Malignant Core Biopsy on the right side. 08/23/2010, Malignant Core Biopsy on the right side. 08/23/2010, Malignant Core Biopsy on the right side. 08/23/2010, Malignant Core Biopsy on the right side. 03/05/2010, Benign Cyst Aspiration on the right side. 12/18/2007, Malignant Core Biopsy on the right side. 2012, Chemotherapy. 2012, Radiation Therapy. 05/31/2019, US discontinued breast bx LT on the left side. 06/26/2011, Cancelled Left US Needle Biopsy on the left side. 2012, Implant on the left side. Paternal grandmother had breast cancer, age 80. Paternal aunt had breast cancer. Technique: Method: Whole Breast Handheld. Prior Study Comparison: 12/26/2011 Left Diagnostic Mammogram, [facility]. 10/31/2015 Left Diagnostic Mammogram, [facility]. 11/21/2016 Left Diagnostic Mammogram, [facility]. Findings: The whole breast of both breasts, the axilla of both breasts and the retroareolar of both breasts were scanned. A complete US of all four quadrants of the breast and retro-areolar region were reviewed. No solid or cystic masses are identified. Bilateral mammography recommended which has not been performed since 08/15/2010.Continue screening ultrasound if patient continues to decline screening mammogram. Overall Assessment: Benign, BI-RAD 2 Management: Diagnostic Breast Ultrasound of both breasts in 1 year. A clinical breast exam by your physician is recommended on an annual basis and results should be correlated with mammographic findings. This exam should not preclude additional follow-up of suspicious palpable abnormalities. Results were given to the patient verbally at the time of exam. [facility], , 02/01/2025 1:16 PM. Electronically signed and approved by: Sina Nash M.D. Radiolog[facility]
== END | disposition home or self-care (01) ==
LOC: RADUSWWP 12:26
PROVIDERS: ATTEND Internal Medicine Hematology & Oncology
DX: N63.10 Unspecified lump in the right breast, unspecified quadrant (principal); Z85.3 Personal history of malignant neoplasm of breast; Z80.3 Family history of malignant neoplasm of breast; Z78.0 Asymptomatic menopausal state

== ENCOUNTER → 2025-05-05 | Outpatient (CLI) | payer MEDICAID ==
--- NOTE | 2025-05-05 13:59 | CT ---
EXAMINATION TYPE: CT ChestAbdPelvis w con DATE OF EXAM: 05/05/2025 COMPARISON: 04/18/2021 CLINICAL INDICATION: Female, 64 years old with history of C50.[address] DLP: 1388.40 mGycm Automated exposure control for dose reduction was used. CONTRAST: CT scan of the chest, abdomen and pelvis is performed without Oral Contrast and with IV Contrast, pat ient injected with 100ml mL of Isovue 300. FINDINGS: CT chest: Patient is status post right mastectomy and left breast implant. There is no suspicious lung mass or nodule. There is no abnormal airspace/consolidative density or abnormal interstitial density. There is no pleural effusion, pleural thickening or pneumothorax. The great vessels and chest are normal there is no mediastinal, hilar or axillary adenopathy. No focal osseous lesions are seen. CT abdomen and pelvis: Gallbladder is normal without distention, pericholecystic fluid, wall thickening or gallstone. There is no biliary ductal dilatation. There is no focal mass or organomegaly involving the liver, pancreas, spleen or adrenal glands.. There is no solid renal mass or hydronephrosis. There is no retroperitoneal adenopathy or hemorrhage in the caliber of the abdominal aorta is normal. The bowel loops are normal in caliber and there is no dilatation or obstruction. No inflammatory gallegos ges identified in the bowel wall and mesentery. There is no free intracranial air or fluid. There is no pelvic mass or adenopathy. There is no free fluid within the pelvis. No focal osseous lesions are seen. Soft tissue the abdomen and pelvis are normal. IMPRESSION: No significant interval change. No evidence of recurrent or metastatic disease within the chest, abdo men or pelvis. [facility], , 05/05/2025 1:57 PM
== END | disposition home or self-care (01) ==
LOC: RADCTMAIN 11:39
PROVIDERS: ATTEND Internal Medicine Hematology & Oncology
DX: C50.919 Malignant neoplasm of unspecified site of unspecified female breast (principal); Z71.3 Dietary counseling and surveillance
CPT/HCPCS: 71260; 74177; Q9967

== ENCOUNTER → 2025-05-06 | Outpatient (CLI) | payer MEDICAID ==
[2025-05-06 15:07] LABS: Basophils # (A) 0.11 X 10*3/uL (0.00-0.10); Basophils % (A) 1.1 %; Eosinophils # (A) 0.36 X 10*3/uL (0.04-0.35); Eosinophils % (A) 3.6 %; HCT 39.2 % (37.2-46.3); HGB 12.7 g/dL (12.0-15.0); Lymphocytes # (A) 2.19 X 10*3/uL (0.90-5.00); Lymphocytes % (A) 21.9 %; MCH 31.8 pg (27.0-32.0); MCHC 32.4 g/dL (32.0-37.0); Mean Platelet Volume 10.2 FL (9.5-12.2); Monocytes # (A) 0.71 X 10*3/uL (0.20-1.00); Monocytes % (A) 7.1 %; NRBC Per 100 WBC 0 X 10*3/uL (0.00-0.01); Neutrophils % (A) 65.8 %; Platelet Count 332 X 10*3/uL (140-440); RDW 14.4 % (11.5-14.5); WBC 10.02 X 10*3/uL (4.50-10.00)
[2025-05-06 15:43] LABS: ALT 23 U/L (8-44); AST 21 U/L (13-35); Albumin 4.2 g/dL (3.8-4.9); Albumin/Globulin Ratio 1.68 Ratio (1.60-3.17); Alkaline Phosphatase 62 U/L (41-126); BUN/Creat Ratio 19.33 Ratio (12.00-20.00); Blood Urea Nitrogen 11.6 mg/dL (9.0-27.0); Calcium 9.5 mg/dL (8.7-10.3); Carbon Dioxide 27.2 mmol/L (21.6-31.8); Chloride 104 mmol/L (96-109); Chol/HDL Ratio 2.99 Ratio; Globulin 2.5 g/dL (1.6-3.3); Glucose 116 mg/dL (70-110); LDL Cholesterol,Calculated 114.6 mg/dL (0.0-131.0); Magnesium 2.1 mg/dL (1.5-2.4); Potassium 4.4 mmol/L (3.5-5.5); Sodium 141 mmol/L (135-145); Total Bilirubin 0.5 mg/dL (0.3-1.2); Total Protein 6.7 g/dL (6.2-8.2)
== END | disposition home or self-care (01) ==
LOC: LABWHC1 08:36
PROVIDERS: ATTEND Internal Medicine Hematology & Oncology
DX: C50.919 Malignant neoplasm of unspecified site of unspecified female breast (principal); E78.2 Mixed hyperlipidemia; E07.9 Disorder of thyroid, unspecified; Z71.3 Dietary counseling and surveillance
CPT/HCPCS: 36415; 80053; 80061; 82306; 82607; 83735; 84443; 85025